=== PATIENT | male | born 1945 | race Caucasian/White ===

== ENCOUNTER 2023-01-12 10:42 | Inpatient (IN) | payer OTHER ==
--- OUTSIDE RECORDS SUMMARY | 2023-01-12 10:44 | XMS REPORT | Continuity of Care Document ---
:1945 Author Organization [facility] t Address [address] [facility] [address] [place] [address] Care Team Providers Name Role Phone Willie SALAZAR, Twan Primary Care Physician [place] SALAZAR, Josh Griffith Attending Clinician Riana LYNCH, Yung Attending Clinician Unavailable Payers Payer Name Policy Type Policy Number Effective Date Expiration Date S ource Problems This patient has no known problems. Allergies, Adverse Reactions, Alerts This patient has no known allergies or adverse reactions. Family History Family Member Diagnosis Comments Start Date Stop Date Source Natural father Throat cancer [facility] Natural sister Other [facility] Social History Social Habit Start Date Stop Date Quantity Comments Source Gender identity 2022-06-30 Identifies as [facility]28:[facility] gender Hospital (finding) [facility] orientation [facility] History of tobacco Cigarette Smoker [facility] Alcohol intake 2022-12-28 2022-12-28 Current drinker [facility] 00:00:00 00:00:00 of alcohol Hospital (finding) History of Social 2022-12-28 2022-12-[address] function 00:00:00 00:00:00 Hospital Education 2022-10-17 2022-10-17 18 [facility] 00:00:00 [facility]:00 [facility] Tobacco Comment 2022-10-17 2022-10-17 QUIT smoking in [facility] 00:00:00 00:00:[address] [place] [address] Alcohol Comment 2022-10-17 2022-10-17 socially [facility] 00:[facility]:00 [facility] Tobacco use and 2022-10-17 2022-10-17 Smokeless tobacco [facility] exposure 00:00:00 00:00:00 non-user Hospital Sex Assigned At [birth year] [facility] 00:00:[facility]:00 Hospital Smoking Status Start Date Stop Date Source Ex-smoker 2022-10-17 00:00:00 2022-10-17 00:00:00 [facility] Medications Ordered Filled Start Stop Current Ordering Indication Dosage Frequency Signature Comments Components Source Medication Medication Date Date Medication? Clinician (SIG) Name Name UNABLE TO 2022- No Stem Cell [facility] FIND 12-[address] 15:25: 00:00 2/day Hospita 02 :00 l UNABLE TO 2022- No Stem Cell [facility] FIND 12-[address] 15:25: 00:00 2/day Hospita 02 :00 l UNABLE TO Yes 800ug 800 mcg. Met romelia FIND 12-28 Med Name: st 14:15: Methylfola Hospita 27 te 5 x l wkly UNABLE TO Yes 800ug 800 mcg. Met khushbui FIND 12-28 Med Name: st 14:15: Methylfola [facility]ospita 27 te 5 x l wkly ELDERBERRY Yes 1{capsu Take 1 Me thodi FRUIT ORAL 830 le} capsule by st 14:12: mouth. Hospita 33 1600 mg 5 l days weekly with zinc and vit c Lactobacill Yes 120mg Take 120 M ethodi us 8-[address] acidophilus 14:12: mouth. Hosp tamra (PROBIOTIC 33 daily l ORAL) cyanocobala Yes Take by Met romelia min, [address] vitamin 14:12: 1000 mcg Hospit a B-12, 33 daily l (VITAMIN B-12 ORAL) cholecalcif Yes Take by Met romelia mary carmen, 8-[address] vitamin D3, 14:12: mcg/ day Ho spita (VITAMIN D3 33 l ORAL) aspirin Yes 81mg QD Take 1 Methodi (ECOTRIN) 30 tablet (81 st 81 MG 14:12: mg total) Hospita enteric 33 by mouth l coated daily. tablet ascorbic 2023-0 Yes 500mg QD Take 1 Method i acid, 8-[address] vitamin C, 14:12: (500 mg Hosp [facility] (VITAMIN C) 33 total) by l 500 MG mouth tablet daily. 5 x wkly docosahexae 2022-0 Yes 1100mg Take 1,100 Methodi noic 8-[address] acid/epa 14:12: mouth. 5 Hospi ta (FISH OIL 33 days a l ORAL) week turmeric/tu 0 Yes 500mg Take 500 M ethodi rmeric 8-[address] ext/pepr 14:12: mouth. 5 Hospi ta ext 33 days wkly l (turmeric-t urmeric ext-pepper) 500-3 mg capsule LUTEIN-ZEAX 0 Yes 10mg Take 10 mg Methodi ANTHIN ORAL 8-[address] 14:12: 10 MG EACH Hospita 33 l ELDERBERRY 2022-0 Yes 1{capsu Take 1 Me thodi FRUIT ORAL 8-30 le} capsule by st 14:12: mouth. Hospita 33 1600 mg 5 l days weekly with zinc and vit c Lactobacill 0 Yes 120mg Take 120 M ethodi us 8-[address] acidophilus 14:12: mouth. Hosp tamra (PROBIOTIC 33 daily l ORAL) cyanocobala 0 Yes Take by Met romelia min, 8-[address] vitamin 14:12: 1000 mcg Hospit a B-12, 33 daily l (VITAMIN B-12 ORAL) cholecalcif 0 Yes Take by Met romelia mary carmen, 8-[address] vitamin D3, 14:12: mcg/ day Ho spita (VITAMIN D3 33 l ORAL) aspirin 0 Yes 81mg QD Take 1 [facility] (ECOTRIN) 8-30 tablet (81 st 81 MG 14:12: mg total) Hospita enteric 33 by mouth l coated daily. tablet ascorbic 2022-0 Yes 500mg QD Take 1 Method i acid, 8-[address] vitamin C, 14:12: (500 mg Hosp tamra (VITAMIN C) 33 total) by l 500 MG mouth tablet daily. 5 x wkly docosahexae 2022-0 Yes 1100mg Take 1,100 Methodi noic 8-[address] acid/epa 14:12: mouth. 5 Hospi ta (FISH OIL 33 days a l ORAL) week turmeric/tu 0 Yes 500mg Take 500 M ethodi rmeric 8-[address] ext/pepr 14:12: mouth. 5 Hospi ta ext 33 days wkly l (turmeric-t urmeric ext-pepper) 500-3 mg capsule LUTEIN-ZEAX 0 Yes 10mg Take 10 mg Method[facility] ANTHIN ORAL 8-[address] 14:12: 10 MG EACH Hospita 33 l donepeziL 0 2023- Yes 5mg QD Take 1 Metho di (Aricept) 5 8-30 08-30 tablet (5 st MG tablet 00:00: 04:59 mg total) Ho spita 00 :00 by mouth l nightly. donepeziL 0 2023- Yes 5mg QD Take 1 Meth[facility] di (Aricept) 5 8-30 08-30 tablet (5 st MG tablet 00:00: 04:59 mg total) Ho spita 00 :00 by mouth l nightly. UNABLE TO 2022-0 Yes Curaphex-E Me thodi FIND 6-[address] 09:02: mg / day Hospita 20 l UNABLE TO 3-0 Yes 144mg 144 mg. Meth savita FIND 6-23 Neuro-[address] 09:02: 2 per day Hospita 20 l UNABLE TO 3-0 Yes 1000mg 1,000 mg. M ethodi FIND 6-[address] 09:02: 2/day Hospita 20 l melatonin 2022-0 Yes Take by Metho di 10 mg 6-[address] tablet 09:02: nightly Hospita 20 l UNABLE TO 3-0 Yes 1{capfu 1 Capful. Methodi FIND 6-23 l} Med st 09:02: Name:Mycob Hospita 20 otanical l UNABLE TO 3-0 Yes Curaphex-E Me thodi FIND 6-[address] 09:02: mg / day Hospita 20 l UNABLE TO 2023-0 Yes 144mg 144 mg. Meth savita FIND 6-23 Neuro-Mag [address] 09:02: 2 per day Hospita 20 l UNABLE TO 2023-0 Yes 1000mg 1,000 mg. M ethodi FIND 6-[address] 09:02: 2/day Hospita 20 l melatonin 2022-0 Yes Take by Metho di 10 mg 6-[address] tablet 09:02: nightly Hospita 20 l UNABLE TO 2022-0 Yes 1{capfu 1 Capful. Methodi FIND 6-23 l} Med st 09:02: Name:[facility] 20 otanictahira cid Vital Signs Vital Name Observation Time Observation Value Comments Source Systolic blood 2022-12-28 19:19:00 131 mm[Hg] [facility] pressure Diastolic blood 2022-12-28 19:19:00 70 mm[Hg] [facility] pressure Heart rate 2022-12-28 19:19:00 75 /min [facility] Body temperature 2022-12-28 19:07:00 36.28 Luz Marina [facility] Body height 2022-12-28 19:07:00 162.6 cm [facility] Body weight 2022-12-28 19:07:00 67.132 kg [facility] BMI 2022-12-28 19:07:00 25.40 kg/m2 [facility] Procedures Procedure Date / Time Performed Performing Clinician Sour e URINE CULTURE 2022-10-21 17:27:00 [facility] MTHFR MUTATION 2022-10-21 17:27:00 [facility] HOMOCYSTINE, PLASMA 2022-10-21 17:27:00 [place] [facility] HEMOGLOBIN A1C 2022-10-21 17:27:00 [facility] FOLATE, RBC 2022-10-21 17:27:00 [place] [facility] VITAMIN D 25 HYDROXY 2022-10-21 17:27:00 [place] [facility] LEVEL VITAMIN B6 LEVEL, 2022-10-21 17:27:00 [place] [facility] PLASMA VITAMIN B12 LEVEL 2022-10-21 17:27:00 [place] [facility] VITAMIN B1 (THIAMINE) 2022-10-21 17:27:00 [place] Josh [facility] URINALYSIS SCREEN AND 2022-10-21 17:27:00 Josh Haynes [facility] MICROSCOPY, WITH REFLEX TO CULTURE Plan of Care Planned Activity Planned Date Details Comments Source Future Scheduled 2023-01-02 COVID-19 VACCINE (#1) [facility] Test 09:06:47 [code = COVID-19 VACCINE (#1)] Future Scheduled 2023-01-02 Hepatitis C screening [facility] Test 09:06:47 (procedure) [code = 882839086] Future Scheduled 2023-01-02 SHINGLES VACCINES (1 Met [facility] Test 09:06:47 of 2) [code = SHINGLES VACCINES (1 of 2)] Future Scheduled 2023-01-02 65+ PNEUMOCOCCAL [facility] Test 09:06:47 VACCINE (1 - PCV) [code = 65+ PNEUMOCOCCAL VACCINE (1 - PCV)] Future Scheduled 2023-01-02 INFLUENZA VACCINE (#1) [facility] Test 09:06:47 [code = INFLUENZA VACCINE (#1)] Future Scheduled 2023-01-02 COVID-19 VACCINE (#1) [facility] Test 09:06:47 [code = COVID-19 VACCINE (#1)] Future Scheduled 2023-01-02 Hepatitis C screening [facility] Test 09:06:47 (procedure) [code = 246290595] Future Scheduled 2023-01-02 SHINGLES VACCINES (1 Met [facility] Test 09:06:47 of 2) [code = SHINGLES VACCINES (1 of 2)] Future Scheduled 2023-01-02 65+ [facility]:06:47 VACCINE (1 - PCV) [code = 65+ PNEUMOCOCCAL VACCINE (1 - PCV)] Future Scheduled 2023-01-02 INFLUENZA VACCINE (#1) [facility] Test 09:06:47 [code = INFLUENZA VACCINE (#1)] Encounters Start End Encounter Admission Attending Care Care Encounter Source Date/Time Date/Time Type Type Clinicians Facility Department ID 2022-12-28 2022-12-28 Roberth Espinoza2.840.1 [id number] Methodi 13:45:00 14:53:48 Visit Josh Griffith 34746.1.1 412 s t 3.430.2.7 Hospit a .3.955982 l .8 2022-12-28 2022-12-28 Office [place], 1.2.840.1 [id number] Methodi 13:45:00 14:53:48 Visit Josh Griffith 74341.1.1 412 s t 3.430.2.7 Hospit a .3.827314 l .8 2022-10-21 2022-10-21 Lab [place], 1.2.840.1 [id number] Methodi 11:20:00 11:25:00 Josh Griffith 97365.1.1 734 s t 3.430.2.7 Hospit a .3.231778 l .8 2022-10-21 2022-10-21 Lab [place], 1.2.840.1 [id number] Methodi 11:20:00 11:25:00 Josh Griffith 02043.1.1 734 s t 3.430.2.7 Hospit a .3.619819 l .8 2022-10-21 2022-10-21 Office [place], 1.2.840.1 [id number] Methodi 09:00:00 11:06:55 Visit Josh Griffith 26247.1.1 158 s t 3.430.2.7 Hospit a .3.463453 l .8 2022-10-21 2022-10-21 Office [place], 1.2.840.1 [id number] Methodi 09:00:00 11:06:55 Visit Josh Pang. 25916.1.1 158 s t 3.430.2.7 Hospit a .3.319910 l .8 2022-10-17 2022-10-17 Refill J[place], 1.2.840.1 [id number] Methodi 00:00:00 00:00:[address] 3.430.2.7 Hospit a .3.648804 l .8 2022-10-17 2022-10-17 Refill [place], 1.2.840.1 [id number] Methodi 00:00:00 00:00:[address] 3.430.2.7 Hospit a .3.116161 l .8 2022-07-20 2022-07-20 Orders [place], 1.2.840.1 [id number] Methodi 00:00:00 00:00:00 Only Josh C. 93984.1.1 582 s t 3.430.2.7 Hospit a .3.201135 l .8 2022-07-20 2022-07-20 Orders [place], 1.2.840.1 [id number] Methodi 00:00:00 00:00:00 Only Josh C. 92252.1.1 582 s t 3.430.2.7 Hospit a .3.322974 l .8 2022-06-30 2022-06-30 Transcribe [place], 1.2.840.1 [id number] Methodi 00:00:00 00:00:00 Orders Josh C. 80776.1.1 211 s t 3.430.2.7 Hospit a .3.462813 l .8 2022-06-30 2022-06-30 Transcribe [place], 1.2.840.1 [id number] Methodi 00:00:00 00:00:00 Orders Josh C. 13435.1.1 211 s t 3.430.2.7 Hospit a .3.239551 l .8 Results Test Description Test Time Test Comments Results Result Comments Source Urine culture 2022-10-21 18:59:00 Test Item Value Reference Range Interpretation Comme nts Urine culture (test code = 7338963) SEE COMMENT [facility], with reflex to culture 2022-10-21 18:59:00 Test Item Value Reference Range Interpretation Comments Specimen site (test Clean catch code = 0514680) Color, UA (test code Straw = 5778-6) Appearance, UA (test Clear code = 5767-9) Specific gravity, UA 1.013 1.001-1.035 (test code = 5811-5) pH, UA (test code = 6.0 5.0-8.5 5803-2) Protein, UA (test Negative Negative code = 21731-3) Glucose, UA (test Negative Negative code = 19664-4) Ketones, UA (test Negative Negative code = 2514-8) Bilirubin, UA (test Negative Negative code = 5770-3) Blood, UA (test code Negative Negative = 5794-3) Nitrite, UA (test Negative Negative code = 5802-4) Urobilinogen, UA <2.0 See_Comment [Automated message] (test code = The system beneSol 98622-9) generated this result transmitted ref erence range: <=2.0. T he reference range was not used to int erpret this result as normal/abnormal . Leukocyte esterase, Negative Negative UA (test code = 5799-2) WBC, UA (test code = See_Comment [Autom ated message] 5821-4) The system [employer] generated this result transmitted ref erence range: 0 - 1 /H PF. The reference range was not used to int erpret this result as normal/abnormal . RBC, UA (test code = 1 See_Comment [Autom ated message] 57422-1) The system [employer] generated this result transmitted ref erence range: 0 - 5 /H PF. The reference range was not used to int erpret this result as normal/abnormal . Bacteria, UA (test None seen None seen code = 96668-1) Yeast, UA (test code None seen = 89018-0) Yeast with None seen pseudohyphae, UA (test code = 96643-8) [facility] [id number] 18:59:00 Test Item Value Reference Range Interpretation Comments Urine culture (test SEE COMMENT Bacteriu chaitanya screen code = 3615519) negative. [facility], with reflex to culture 2022-10-21 18:59:00 Test Item Value Reference Range Interpretation Comments Specimen site (test Clean catch code = 7831336) Color, UA (test code Straw = 5778-6) Appearance, UA (test Clear code = 5767-9) Specific gravity, UA 1.013 1.001-1.035 (test code = 5811-5) pH, UA (test code = 6.0 5.0-8.5 5803-2) Protein, UA (test Negative Negative code = 01280-3) Glucose, UA (test Negative Negative code = 70249-1) Ketones, UA (test Negative Negative code = 2514-8) Bilirubin, UA (test Negative Negative code = 5770-3) Blood, UA (test code Negative Negative = 5794-3) Nitrite, UA (test Negative Negative code = 5802-4) Urobilinogen, UA <2.0 See_Comment [Automated message] (test code = The system beneSol 97626-9) generated this result transmitted ref erence range: <=2.0. T he reference range was not used to int erpret this result as normal/abnormal . Leukocyte esterase, Negative Negative UA (test code = 5799-2) WBC, UA (test code = See_Comment [Autom ated message] 5821-4) The system [employer] generated this result transmitted ref erence range: 0 - 1 /H PF. The reference range was not used to int erpret this result as normal/abnormal . RBC, UA (test code = 1 See_Comment [Autom ated message] 44887-2) The system [employer] generated this result transmitted ref erence range: 0 - 5 /H PF. The reference range was not used to int erpret this result as normal/abnormal . Bacteria, UA (test None seen None seen code = 15976-9) Yeast, UA (test code None seen = 52458-0) Yeast with None seen pseudohyphae, UA (test code = 61282-0) [facility]
--- NOTE | 2023-01-12 11:47 | RAD REPORT ---
EXAM DESCRIPTION: CT - Head Brain Wo Cont - 01/12/2023 11:23 am CLINICAL HISTORY: HEADACHE COMPARISON: Ct Stroke Brain Wo Cont dated 01/09/2023 TECHNIQUE: Noncontrast head CT images ad were obtained without IV contrast. Multiplanar reformats we re generated and reviewed. All CT scans are performed using dose optimization technique as appropriate and may include automated exposure control or mA/KV adjustment according to patient size. FINDINGS: No intracranial hemorrhage, mass, or edema. Midline structures are unremarkable. Stable ventricular caliber with mild diffuse parenchymal volume loss. Davidson-white matter differentiation is preserved, without evidence of acute infarct. No abnormal extra- axial fluid collections. Mastoid air cells are well aerated. Scattered mild inflammatory mucosal thickening throughout the par anasal sinuses. No acute bony findings. IMPRESSION: No evidence of an acute intracranial process.
[2023-01-12 12:51] LABS: Hematocrit 41.7 % (39.6-49.0); Lymphocytes % 26.3 % (15.3-44.8); MCV 93.9 fL (80-100); MPV 8.3 fL (7.6-11.3); Platelets 211 thou/uL (152-406); RBC Red Blood Cell Count 4.44 M/uL (4.33-5.43)
[2023-01-12 13:02] LABS: Protime INR 0.95
[2023-01-12 13:12] LABS: Albumin 3.4 g/dL (3.4-5.0); Bilirubin Direct 0.2 mg/dL (0-0.2); Bilirubin Indirect, Calculated 0.6 mg/dL (0.2-0.8); Bilirubin Total 0.8 mg/dL (0.2-1.0); Magnesium 2.1 mg/dL (1.6-2.4); Potassium 3.6 mEq/L (3.5-5.1); Protein, Total 6.5 g/dL (6.4-8.2); Troponin High Sensitivity 9.4 pg/mL (<58.9)
--- NOTE | 2023-01-12 13:36 | RAD REPORT ---
EXAM DESCRIPTION: RAD - Chest Single View - 01/12/2023 1:30 pm CLINICAL HISTORY: streok Chest pain. COMPARISON: Chest Single View dated 01/09/2023 FINDINGS: Portable technique limits examination quality. The lungs are grossly clear. The heart is normal in size. No displaced fractures. IMPRESSION: No acute intrathoracic process suspected.
[2023-01-12] MEDS ORDERED: METOCLOPRAMIDE 10 MG/2mL INJ ONE (14:17)
--- NOTE | 2023-01-12 15:06 | RAD REPORT ---
EXAM DESCRIPTION: MRI - Brain W/Wo Cont - 01/12/2023 2:53 pm CLINICAL HISTORY: Confused;Hemiplegia;Headache;Weakness Headache, drowsiness, weakness COMPARISON: Head Brain Wo Cont dated 01/12/2023; Ct Stroke Brain Wo Cont dated 01/09/2023; Neck Angio dated 01/09/2023; Head angio dated 01/09/2023 TECHNIQUE: Multi-sequence, multiplanar MR imaging of the brain was performed with contrast. FINDINGS: No intracranial hemorrhage, hydrocephalus, or extra-axial fluid collection.Small nonspecif ic area of T2/FLAIR hyperintensity in the anterior aspect of the superior right cerebellar hemisphere noted. This does not enhance and is unlikely to be of clinical consequence. No edema or shift of mid line structures. Moderate brain atrophy.No intracranial mass. There is a 6 mm area of diffusion restr iction seen right medulla suspected to represent small infarct.. The midline structures are normally formed. Mastoid air cells and paranasal sinuses are clear. Post-contrast images show no abnormal enhancement to suggest tumor or infection. 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 Elsewhere, no acute finding is evident.
[2023-01-12] MEDS ORDERED: HYDRALAZINE HCL 25 MG TABLET ONE (15:10)
--- NOTE | 2023-01-12 15:54 | ER ---
Nurse's Notes [facility] Name: Robinson Norman Age: 77 yrs Sex: Male : 1945 Arrival Date: 01/12/2023 Time: 10:42 Bed 19 Private MD: Twan Tapia V Diagnosis: Cerebral infarction, unspecified Presentation: 01/12 11:02 Chief complaint: Spouse and/or significant other states: right side of head hurts and ko1 when he moves his head he gets dizzy. Coronavirus screen: At this time, the client does not indicate any symptoms associated with coronavirus-19. Ebola Screen: No symptoms or risks identified at this time. Initial Sepsis Screen: Does the patient meet any 2 criteria? No. Patient's initial sepsis screen is negative. Does the patient have a suspected source of infection? No. Patient's initial sepsis screen is negative. Risk Assessment: Do you want to hurt yourself or someone else? Patient reports no desire to harm self or others. Onset of symptoms was January 12, 2023. 11:02 Method Of Arrival: Wheelchair ko1 11:02 Acuity: TRE 3 ko1 Triage Assessment: 11:06 Headache History: The patient has had previous headaches and this one is similar to ko1 previous episodes. General: Appears in no apparent distress. Behavior is calm, cooperative, appropriate for age. Pain: Complains of pain in right frontal area Pain currently is 6 out of 10 on a pain scale. Pain began gradually, Also complains of no other associated symptoms. Neuro: Reports dizziness, headache in right. Historical: - Allergies: 11:06 No Known Allergies; ko1 - PMHx: 11:06 Dementia; ko1 - Immunization history:: Adult Immunizations up to date. - Social history:: Smoking status: Patient denies any tobacco usage or history of. Screenin:11 [facility] ED Fall Risk Assessment (Adult) History of falling in the last 3 months, me1 including since admission No falls in past 3 months (0 pts) Confusion or Disorientation No (0 pts) Intoxicated or Sedated No (0 pts) Impaired Gait Yes (1 pt) Mobility Assist Device Used No (0 pt) Altered Elimination No (0 pt) Score/Fall Risk Level 0 - 2 = Low Risk. Abuse screen: Denies threats or abuse. Nutritional screening: No deficits noted. Tuberculosis screening: No symptoms or risk factors identified. Assessment: 13:11 General: Appears comfortable, well groomed, well developed, well nourished, Behavior is me1 calm, cooperative, appropriate for age, Reports intermittent right sided headache with dizziness. Denies fever, feeling ill, fatigue, chills. Pain: Denies pain. Complains of pain in right jew Pain does not radiate. Pain at worst was 7 out of 10 on a pain scale. Quality of pain is described as aching, Pain began intermittently Is intermittent. Neuro: Level of Consciousness is awake, alert, obeys commands, drowsy. Oriented to person, place, time, situation, Appropriate for age Firearms Assembly Supervisor are weak on right Moves all extremities. Speech is normal, Facial symmetry appears normal, Pupils are PERRLA, Intact Reports headache in right weakness. Cardiovascular: Capillary refill < 3 seconds Patient's skin is warm and dry. Respiratory: Airway is patent Respiratory effort is even, unlabored, Respiratory pattern is regular, symmetrical. Musculoskeletal:. 15:07 Reassessment: Pt returned from MRI, reports continued dizziness, nystagmus noted, jl7 denies history of nystagmus. Vital Signs: 11:02 BP 201 / 66; Pulse 51; Resp 18; Temp 97.5; Pulse Ox 97% ; Weight 65.77 kg; Height 5 ft. ko1 5 in. ; 12:30 BP 209 / 69; Pulse 45; Resp 16; Pulse Ox 98% ; me1 12:30 BP 205 / 73; Pulse 44; Resp 16; Pulse Ox 98% on R/A; me1 15:07 BP 225 / 99; Pulse 49; Resp 15; Pulse Ox 100% ; jl7 15:54 BP 217 / 81; Pulse 53; Resp 16; Pulse Ox 99% on R/A; me1 11:02 Body Mass Index 24.13 (65.77 kg, 165.1 cm) ko1 Needles Coma Score: 17:52 Eye Response: spontaneous(4). Motor Response: obeys commands(6). Verbal Response: sb4 oriented(5). Total: 15. NIH Stroke Scale Scores: 17:15 NIHSS Score: 4 me1 17:52 NIHSS Score: 2 sb4 ED Course: 10:44 Patient arrived in ED. rg4 10:44 Twan Tapia MD is Private Physician. rg4 10:49 Lara Schmitt PA-C is [facility] sb4 10:49 Jose Alejandro Rosario MD is Attending Physician. sb4 11:06 Triage completed. ko1 11:06 Arm band placed on right wrist. Patient placed in waiting room, Patient notified of ko1 wait time. 11:24 Head Brain Wo Cont CT In Process Unspecified. EDMS 11:45 Patient placed in an exam room, on a stretcher. ll1 12:17 Lashawn Tapia, SYED is Primary Nurse. me1 12:31 Basic Metabolic Panel Sent. me1 12:31 CBC with Diff Sent. me1 12:31 Hepatic Function Sent. me1 12:31 High Sensitivity Troponin Sent. me1 12:31 Magnesium Sent. me1 12:31 Protime (+inr) Sent. me1 12:31 Ptt, Activated Sent. me1 12:31 Inserted saline lock: 22 gauge in left antecubital area, using aseptic technique. me1 13:11 Patient has correct armband on for positive identification. Bed in low position. Call me1 light in reach. Side rails up X2. Provided Education on: POC. Verbalized understanding.. 13:11 No provider procedures requiring assistance completed. me1 13:32 Stroke CXR 1 View In Process Unspecified. EDMS 14:55 Brain W/Wo Cont MRI In Process Unspecified. EDMS 16:30 Twan Tapia MD is Hospitalizing Provider. sb4 19:39 Patient admitted, IV remains in place. me1 Administered Medications: 14:08 Drug: metoCLOPramide IVP 10 mg Route: IVP; Site: right antecubital; me1 15:08 Follow up: Response: No adverse reaction; Nausea is decreased me1 15:06 Drug: HydrALAZINE PO 25 mg Route: PO; jl7 15:54 Follow up: Response: No adverse reaction; No change in condition me1 16:08 Drug: foLIC Acid IVPB 1 mg Route: IVPB; Site: right antecubital; me1 16:49 Follow up: Response: No adverse reaction me1 17:23 Follow up: IV Status: Completed infusion me1 17:15 Drug: Clopidogrel PO 75 mg Route: PO; me1 17:24 Follow up: Response: No adverse reaction me1 17:15 Drug: Atorvastatin PO 40 mg Route: PO; me1 17:24 Follow up: Response: No adverse reaction me1 18:34 Drug: amLODIPine PO 5 mg Route: PO; me1 18:34 Drug: Keppra PO 500 mg Route: PO; me1 Medication: 13:11 VIS not applicable for this client. me1 Outcome: 15:54 ER care complete, transfer ordered by . sb4 16:30 Decision to Hospitalize by Provider. sb4 19:25 Patient left the ED. kd3 19:39 Admitted to Med/surg accompanied by nurse, via wheelchair, room 405, with chart, Report me1 called to SYED Finch 19:39 Condition: stable 19:39 Instructed on the need for admit. NIH Stroke Scale - NIH Stroke Score Date: 01/12/2023 Time: 17:15 Total Score = 4 10. Dysarthria (speech clarity - read or repeat words) - 1(Mild to Moderate) 11. Extinction and Inattention (visual/tactile/auditory/spatial/personal) - 0(No abnormality) 1a. Level of Consciousness (LOC) - 0(Alert) 1b. Level of Consciousness (LOC) (Month \T\ Age) - 0(Both) 1c. LOC Commands (Open \T\ Closes Eyes/Supervisor Tumbling And Rolling) - 0(Both) 2. Best Gaze (Lateral Gaze Paresis) - 0(Normal) 3. Visual Field Loss - 0(No visual loss) 4. Facial Palsy - 0(Normal) 5a. Left Arm: Motor (10-second hold) - 0(No drift) 5b. Right Arm: Motor (10-second hold) - 1(Drift) 6a. Left Leg: Motor (5-second hold - always test supine) - 0(No drift) 6b. Right Leg: Motor (5-second hold - always test supine) - 1(Drift) 7. Limb Ataxia (finger/nose \T\ heel/zurita - test with eyes open) - 1(Present in one limb) 8. Sensory Loss (pinprick arms/legs/face) - 0(Normal) 9. Best Language: Aphasia (description/naming/reading) - 0(No aphasia) Initials: me1 NIH Stroke Scale - NIH Stroke Score Date: 01/12/2023 Time: 17:52 Total Score = 2 10. Dysarthria (speech clarity - read or repeat words) - 0(Normal) 11. Extinction and Inattention (visual/tactile/auditory/spatial/personal) - 0(No abnormality) 1a. Level of Consciousness (LOC) - 0(Alert) 1b. Level of Consciousness (LOC) (Month \T\ Age) - 0(Both) 1c. LOC Commands (Open \T\ Closes Eyes/Supervisor Tumbling And Rolling) - 0(Both) 2. Best Gaze (Lateral Gaze Paresis) - 0(Normal) 3. Visual Field Loss - 0(No visual loss) 4. Facial Palsy - 1(Minor Paralysis) 5a. Left Arm: Motor (10-second hold) - 0(No drift) 5b. Right Arm: Motor (10-second hold) - 0(No drift) 6a. Left Leg: Motor (5-second hold - always test supine) - 0(No drift) 6b. Right Leg: Motor (5-second hold - always test supine) - 0(No drift) 7. Limb Ataxia (finger/nose \T\ heel/zurita - test with eyes open) - 1(Present in one limb) 8. Sensory Loss (pinprick arms/legs/face) - 0(Normal) 9. Best Language: Aphasia (description/naming/reading) - 0(No aphasia) Initials: sb4 Signatures: Dispatcher [employer] Lillie Schaefer rg4 Saw Navarro RN RN jl7 Moe Lerner, RN RN ll1 Anastasiia Escobar RN RN kd3 Tonia Wilkes RN RN ko1 Lara Schmitt, PADoug PAVanC sb4 Lashawn Tapia, RN RN me1
--- NOTE | 2023-01-12 15:54 | EDPHYS ---
Physician Documentation [facility] Name: Robinson Norman Age: 77 yrs Sex: Male : 1945 Arrival Date: 01/12/2023 Time: 10:42 Bed 19 Private MD: Twan Tapia V ED Physician Jose Alejandro Rosario HPI: 01/12 17:52 This 77 yrs old Male presents to ER via Wheelchair with complaints of Headache. sb4 17:52 77 year old male with past medical history of dementia presents with complaints of sb4 headache and right sided weakness. He was seen here 3 days ago with similar symptoms, had a negative workup including bloodwork, EKG, head CT, brain and neck CTAs and was discharged. states later that day, he had what appeared to be a seizure. The following day, they saw Dr. Worthy who ordered an outpatient MRI and EEG. states that the symptoms worsened this morning. Historical: - Allergies: 11:06 No Known Allergies; ko1 - PMHx: 11:06 Dementia; ko1 - Immunization history:: Adult Immunizations up to date. - Social history:: Smoking status: Patient denies any tobacco usage or history of. ROS: 17:52 Constitutional: Negative for fever, chills, and weight loss. sb4 17:52 Neuro: Positive for dizziness, gait disturbance, weakness. 17:52 Neuro: Positive for headache. 17:52 All other systems are negative. Exam: 17:52 Constitutional: This is a well developed, well nourished patient who is awake, alert, sb4 and in no acute distress. Head/Face: Normocephalic, atraumatic. Eyes: Extra-ocular motions intact. Periorbital areas with no swelling, redness, or edema. Cardiovascular: Regular rate and rhythm with a normal S1 and S2. Respiratory: Lungs have equal breath sounds bilaterally, clear to auscultation and percussion. No rales, rhonchi or wheezes noted. No increased work of breathing, no retractions or nasal flaring. Abdomen/GI: Soft, non-tender, no distension. Skin: Warm, dry with normal turgor. Normal color with no rashes, no lesions, and no evidence of cellulitis. MS/ Extremity: Pulses equal, no cyanosis. Neurovascular intact. Full, normal range of motion. 17:52 Neuro: Orientation: is normal, to person, place, time \T\ situation. Mentation: is normal, appropriate for stated age, responsive to voice able to follow commands, Memory: no acute changes, per family, Cranial nerves: CN I not tested, visual grimm are intact. extraocular movements are intact, facial droop noted on left, no gross hearing deficit,. Speech is clear and appropriate. Tongue strength is normal, Motor: moves all fours, Sensation: no obvious gross deficits, no acute changes, Gait: is unsteady, falls to right. Vital Signs: 11:02 BP 201 / 66; Pulse 51; Resp 18; Temp 97.5; Pulse Ox 97% ; Weight 65.77 kg; Height 5 ft. ko1 5 in. ; 12:30 BP 209 / 69; Pulse 45; Resp 16; Pulse Ox 98% ; me1 12:30 BP 205 / 73; Pulse 44; Resp 16; Pulse Ox 98% on R/A; me1 15:07 BP 225 / 99; Pulse 49; Resp 15; Pulse Ox 100% ; jl7 15:54 BP 217 / 81; Pulse 53; Resp 16; Pulse Ox 99% on R/A; me1 11:02 Body Mass Index 24.13 (65.77 kg, 165.1 cm) ko1 NIH Stroke Scale Scores: 17:15 NIHSS Score: 4 me1 17:52 NIHSS Score: 2 sb4 [place] Coma Score: 17:52 Eye Response: spontaneous(4). Motor Response: obeys commands(6). Verbal Response: sb4 oriented(5). Total: 15. MDM: 10:49 Patient medically screened. sb4 17:52 Differential diagnosis: cerebral vascular accident, intracerebral hemorrhage, migraine, sb4 neoplasm, subarachnoid bleed, subdural hematoma. Data reviewed: vital signs, nurses notes, lab test result(s), EKG, radiologic studies, I have discussed the patient's presentation/case with the attending Emergency Department Physician; and as a result, I will admit patient. Consideration of Admission/Observation Patient was admitted/placed on observation. Management of patient was discussed with the following: Labor Mediator: Dr. Worthy, agrees to consult- recommends plavix, folic acid, and statin. Primary Care Provider: Dr. Tapia, accepts patient for admission. Historians other than the Patient: Spouse/Significant Other: . Counseling: I had a detailed discussion with the patient and/or guardian regarding the historical points, exam findings, and any diagnostic results supporting the discharge/admit diagnosis, the presence of at least one elevated blood pressure reading (>120/80) during this emergency department visit, lab results, radiology results, the need for further work-up and treatment in the hospital. ED course: I initiated transfer on this patient for neuro ICU monitoring however my request was declined by neurosurgery at [facility]. They stated that because his symptoms have been occurring for 3+ days now, it is highly unlikely that the patient will deteriorate with this specific infarct. I discussed this with our neurologist and patient's PCP, Dr. Tapia, and they are okay with patient being admitted at this facility. I also discussed this at length with patient and his and they are also agreeable. 01/12 12:08 Order name: Basic Metabolic Panel; Complete Time: 13:14 sb4 01/12 12:08 Order name: CBC with Diff; Complete Time: 12:56 sb4 01/12 12:08 Order name: Hepatic Function; Complete Time: 13:14 sb4 01/12 12:08 Order name: High Sensitivity Troponin; Complete Time: 13:14 sb4 01/12 12:08 Order name: Magnesium; Complete Time: 13:14 sb4 01/12 12:08 Order name: Protime (+inr); Complete Time: 13:02 sb4 01/12 12:08 Order name: Ptt, Activated; Complete Time: 13:02 sb4 01/12 13:22 Order name: Glucose, Ancillary Testing; Complete Time: 13:23 EDMS 01/12 11:12 Order name: Head Brain Wo Cont CT; Complete Time: 11:50 sb4 01/12 12:04 Order name: Brain W/Wo Cont MRI; Complete Time: 15:07 sb4 01/12 12:08 Order name: Stroke CXR 1 View; Complete Time: 13:38 sb4 01/12 12:08 Order name: EKG; Complete Time: 12:09 sb4 01/12 12:08 Order name: Accucheck; Complete Time: 13:11 sb4 01/12 12:08 Order name: Cardiac monitoring; Complete Time: 13:04 sb4 01/12 12:08 Order name: EKG - Nurse/Tech; Complete Time: 13:04 sb4 01/12 12:08 Order name: IV Saline Lock; Complete Time: 12:31 sb4 01/12 12:08 Order name: Labs collected and sent; Complete Time: 12:31 sb4 01/12 12:08 Order name: NPO; Complete Time: 12:31 sb4 01/12 12:08 Order name: O2 Per Protocol; Complete Time: 12: sb4 01/12 12:08 Order name: O2 Sat Monitoring; Complete Time: 12:31 sb4 01/12 12:08 Order name: Stroke Swallow Screen; Complete Time: 13:08 sb4 01/12 15:50 Order name: Misc. Order: document NIHSS please sb4 EC:37 Rate is 45 beats/min. Rhythm is irregular, Sinus bradycardia with Right bundle branch sb4 block. [place] interval is prolonged at 206 msec. QRS interval is normal at 162 msec. QT interval is prolonged at [address] changes noted. Interpreted by me. Reviewed by me. Administered Medications: 14:08 Drug: metoCLOPramide IVP 10 mg Route: IVP; Site: right antecubital; me1 15:08 Follow up: Response: No adverse reaction; Nausea is decreased me1 15:06 Drug: HydrALAZINE PO 25 mg Route: PO; jl7 15:54 Follow up: Response: No adverse reaction; No change in condition me1 16:08 Drug: foLIC Acid IVPB 1 mg Route: IVPB; Site: right antecubital; me1 16:49 Follow up: Response: No adverse reaction me1 17:23 Follow up: IV Status: Completed infusion me1 17:15 Drug: Clopidogrel PO 75 mg Route: PO; me1 17:24 Follow up: Response: No adverse reaction me1 17:15 Drug: Atorvastatin PO 40 mg Route: PO; me1 17:24 Follow up: Response: No adverse reaction me1 18:34 Drug: amLODIPine PO 5 mg Route: PO; me1 18:34 Drug: Keppra PO 500 mg Route: PO; me1 Disposition: 19:53 Co-signature as Attending Physician, Jose Alejandro Rosario MD. rt Disposition Summary: 01/12/23 16:30 Hospitalization Ordered Hospitalization Status: Inpatient Admission sb4 Provider: Willie, Twan sb4 Location: Telemetry/MedSurg (Inpatient) sb4 Condition: Fair(01/12/23 16:30) sb4 Problem: new(01/12/23 16:30) sb4 Symptoms: are unchanged(01/12/23 16:30) sb4 Bed/Room Type: Standard sb4 Room Assignment: 405(01/12/23 18:13) kj1 Diagnosis - Cerebral infarction, unspecified sb4 Forms: - Medication Reconciliation Form sb4 - SBAR form sb4 - Leadership Thank You Letter sb4 NIH Stroke Scale - NIH Stroke Score Date: 01/12/2023 Time: 17:15 Total Score = 4 10. Dysarthria (speech clarity - read or repeat words) - 1(Mild to Moderate) 11. Extinction and Inattention (visual/tactile/auditory/spatial/personal) - 0(No abnormality) 1a. Level of Consciousness (LOC) - 0(Alert) 1b. Level of Consciousness (LOC) (Month \T\ Age) - 0(Both) 1c. LOC Commands (Open \T\ Closes Eyes/Financial Operations Consultant) - 0(Both) 2. Best Gaze (Lateral Gaze Paresis) - 0(Normal) 3. Visual Field Loss - 0(No visual loss) 4. Facial Palsy - 0(Normal) 5a. Left Arm: Motor (10-second hold) - 0(No drift) 5b. Right Arm: Motor (10-second hold) - 1(Drift) 6a. Left Leg: Motor (5-second hold - always test supine) - 0(No drift) 6b. Right Leg: Motor (5-second hold - always test supine) - 1(Drift) 7. Limb Ataxia (finger/nose \T\ heel/zurita - test with eyes open) - 1(Present in one limb) 8. Sensory Loss (pinprick arms/legs/face) - 0(Normal) 9. Best Language: Aphasia (description/naming/reading) - 0(No aphasia) Initials: me1 NIH Stroke Scale - NIH Stroke Score Date: 01/12/2023 Time: 17:52 Total Score = 2 10. Dysarthria (speech clarity - read or repeat words) - 0(Normal) 11. Extinction and Inattention (visual/tactile/auditory/spatial/personal) - 0(No abnormality) 1a. Level of Consciousness (LOC) - 0(Alert) 1b. Level of Consciousness (LOC) (Month \T\ Age) - 0(Both) 1c. LOC Commands (Open \T\ Closes Eyes/Financial Operations Consultant) - 0(Both) 2. Best Gaze (Lateral Gaze Paresis) - 0(Normal) 3. Visual Field Loss - 0(No visual loss) 4. Facial Palsy - 1(Minor Paralysis) 5a. Left Arm: Motor (10-second hold) - 0(No drift) 5b. Right Arm: Motor (10-second hold) - 0(No drift) 6a. Left Leg: Motor (5-second hold - always test supine) - 0(No drift) 6b. Right Leg: Motor (5-second hold - always test supine) - 0(No drift) 7. Limb Ataxia (finger/nose \T\ heel/zurita - test with eyes open) - 1(Present in one limb) 8. Sensory Loss (pinprick arms/legs/face) - 0(Normal) 9. Best Language: Aphasia (description/naming/reading) - 0(No aphasia) Initials: sb4 Signatures: Dispatcher [employer] EDSaw Shelby RN RN jl7 Niya Bloom kj1 Tonia Wilkes RN RN ko1 Lara Schmitt PA-C PADoug sb4 Jose Alejandro Rosario MD MD rt Lashawn Tapia, RN RN me1 Corrections: (The following items were deleted from the chart) 16:28 15:54 Neurologist sb4 sb4 16:28 15:54 [facility] sb4 sb4 16:28 15:54 Higher level of care sb4 sb4 16:28 15:54 Fair sb4 sb4 16:28 15:54 an ongoing problem sb4 sb4 16:28 15:54 are unchanged sb4 sb4 16:28 15:54 CVA- 6 mm acute infarct right medulla sb4 sb4 18:13 16:30 sb4 kj1
[2023-01-12] MEDS ORDERED: FOLIC ACID 5 MG/ML VIAL ONE (16:12)
[2023-01-12] MEDS ORDERED: ATORVASTATIN 40 MG TAB ONE (17:25)
[2023-01-12] MEDS ORDERED: CLOPIDOGREL 75 MG TABLET ONE (17:25)
[2023-01-12] MEDS ORDERED: AMLODIPINE 5 MG TAB ONE (18:40)
[2023-01-12] MEDS ORDERED: levETIRAcetam 500 MG TAB ONE (18:41)
[2023-01-12 19:55] VITALS: O2SAT 99
--- NOTE | 2023-01-12 21:24 | P.HP ---
Certification for Inpatient Patient admitted to: Inpatient Practitioner: I am a practitioner with admitting privileges, knowledge of patient current condition, hospital course, and medical plan of care. Services: Services provided to patient in accordance with Admission requirements found in Title 42 Section 412.3 of the Code of Federal Regulations Patient History Date of Service: 01/12/23 Reason for admission: TENDS TO SWAY ON RIGHT SIDE ON WALKING. History of Present Illness: MR. HERRERA HAD EPISODE OF CONFUSION 3 DAYS AGO AND I SAW HIM LEANING TO RIGHT SIDE. I SENT HIM TO ER FROM OFFICE, DR. DIAZ DID EVAL AND DID NOT FIND ANYTHING ON CT BRAIN AND CT ANGIOGRAM. I ASKED HIM TO DO MRI BUT HE COULD NOT HAVE IT DONE IN ER. MR HERRERA CONTINUED ASPIRIN BUT GOT WORSE AT HOME. HE IS BACK TODAY. ER COULD DO MRI TODAY AND FOUND HIM TO HAVE 6 MM MEDULAR INFARCT ON R SIDE. HE IS NOW ADMITTED FOR REHAB. Allergies No Known Allergies Allergy (Unverified 01/12/23 19:36) Home medications list reviewed: Yes Review of Systems 10-point ROS is otherwise unremarkable Physical Examination - Vital Signs Temperature: 97.5 F Blood Pressure: 217/81 Pulse: 53 Respirations: 16 - Physical Exam General: Mild distress HEENT: Atraumatic, PERRLA, Mucous membr. moist/pink, EOMI, Sclerae nonicteric Neck: Supple, 2+ carotid pulse no bruit, No LAD, Without JVD or thyroid abnormality Respiratory: Clear to auscultation bilaterally, Normal air movement Cardiovascular: Regular rate/rhythm, Normal S1 S2 Gastrointestinal: Normal bowel sounds, No tenderness Musculoskeletal: No tenderness Integumentary: No rashes Neurological: Normal speech, Abnormal strength (MILD R HEMIPARESIS THAT IS NEW FROM BEFORE. ) Lymphatics: No axilla or inguinal lymphadenopathy - Studies Laboratory Data (last 24 hrs) 01/12/23 01/12/23 01/12/23 12:28 12:28 12:28 WBC 7.40 Hgb 14.3 Hct 41.7 Plt Count 211 PT 10.5 INR 0.95 APTT 29.4 Sodium 133 L Potassium 3.6 BUN 9 Creatinine 0.75 Glucose 113 H Magnesium 2.1 Total Bilirubin 0.8 AST 12 L ALT 20 Alkaline Phosphatase 47 Assessment and Plan - Problems (Diagnosis) (1) Infarction of medulla oblongata Current Visit: Yes Status: Acute Plan: RIGHT SIDE START PLAVIX AMLODIPINE CLONIDINE FOR SEVERE HTN. PT CONSULT REHAB CONSULT. (2) Seizure, absence Current Visit: Yes Status: Acute Plan: DURING THIS 3 DAYS HE HAD EPISODE WHERE HIS EYES ROLLED AND HE GOT ON THE FLOOR. START KEPPRA HE IS HIGH RISK OF STROKE. - Advance Directives Does patient have a Living Will: No Does patient have a Durable POA for Healthcare: No
[2023-01-12 21:39] VITALS: BMI 24.1
[2023-01-12] MEDS ORDERED: cloNIDine HCL 0.1 MG TAB ONE (22:44)
[2023-01-13] MEDS: DONEPEZIL HCL 5 MG TAB PO SCH (07:58)
[2023-01-13] MEDS: CLOPIDOGREL 75 MG TABLET PO SCH (07:58)
[2023-01-13] MEDS: AMLODIPINE 5 MG TAB PO SCH (07:58)
[2023-01-13] MEDS: ASPIRIN EC 81 MG TAB PO SCH (07:58)
[2023-01-13] MEDS: levETIRAcetam 500 MG TAB PO SCH ×2 (07:58→21:06)
[2023-01-13] MEDS: cloNIDine HCL 0.1 MG TAB PO PRN ×2 (07:59→21:10)
--- NOTE | 2023-01-13 14:57 | P.PN ---
Subjective Date of Service: 01/13/23 Chief Complaint: TENDS TO SWAY ON RIGHT SIDE ON WALKING. Subjective: No new changes MR. HERRERA HAS DEMENTIA AND A MEDULLARY STROKE NOW. HE LEANS ON R SIDE WHILE WALKS AND NEEDS PT. SEE PT CARLOZ FOR DETAILS. Review of Systems 10-point ROS is otherwise unremarkable General: Weakness Neurological: Incoordination, Confusion, As per HPI Physical Examination - Vital Signs Temperature: 96.8 F Blood Pressure: 150/70 Pulse: 56 Respirations: 14 Pulse Ox (%): 98 - Physical Exam General: Oriented x2, Mild distress HEENT: Atraumatic, PERRLA, EOMI Neck: Supple, JVD not distended Respiratory: Clear to auscultation bilaterally, Normal air movement Cardiovascular: Regular rate/rhythm, Normal S1 S2 Gastrointestinal: Normal bowel sounds, No tenderness Musculoskeletal: No tenderness Integumentary: No rashes Neurological: Normal speech, Normal tone, Normal affect, Abnormal strength (R SIDE WEAKNESS AND TENDS TO FALL TOWARDS R SIDE. ) Lymphatics: No axilla or inguinal lymphadenopathy - Studies Medications List Reviewed: Yes Assessment And Plan - Current Problems (Diagnosis) (1) Infarction of medulla oblongata Current Visit: Yes Status: Acute Plan: RIGHT SIDE START PLAVIX AMLODIPINE CLONIDINE FOR SEVERE HTN. PT CONSULT REHAB CONSULT. PT CARLOZ DONE REHAB REF PENDING (2) Seizure, absence Current Visit: Yes Status: Acute Plan: DURING THIS 3 DAYS HE HAD EPISODE WHERE HIS EYES ROLLED AND HE GOT ON THE FLOOR. START KEPPRA HE IS HIGH RISK OF STROKE.
--- NOTE | 2023-01-13 16:35 | EKG ---
Test Date: 2023-01-12 Test Time: 12:31:59 Supervisor Wheel [employer]: MONSE MEASUREMENT RESULTS: Intervals: Rate: 45 SC: 206 QRSD: 162 QT: 530 QTc: 458 [place]: P: 6 SC: 206 QRS: -12 T: 0 INTERPRETIVE STATEMENTS: Sinus bradycardia Right bundle branch block Abnormal ECG Compared to ECG 01/09/2023 14:04:31 No significant changes Electronically Signed On 01-13-23 16:32:17 CDT by Jose Benjamin
[2023-01-13] MEDS: ENOXAPARIN 40 MG/0.4 ML SQ SCH (17:09)
[2023-01-13] MEDS: MELATONIN 5 MG TABLET PO PRN (21:06)
[2023-01-14] MEDS: levETIRAcetam 500 MG TAB PO SCH ×2 (07:57→20:13)
[2023-01-14] MEDS: DONEPEZIL HCL 5 MG TAB PO SCH (07:57)
[2023-01-14] MEDS: AMLODIPINE 5 MG TAB PO SCH ×2 (07:58→20:13)
[2023-01-14] MEDS: ASPIRIN EC 81 MG TAB PO SCH (07:58)
[2023-01-14] MEDS: CLOPIDOGREL 75 MG TABLET PO SCH (07:58)
[2023-01-14] MEDS ORDERED: POTASSIUM CL SA 10 MEQ TAB PO ONE (09:00)
--- NOTE | 2023-01-14 09:51 | P.PN ---
Subjective Date of Service: 01/14/23 Chief Complaint: TENDS TO SWAY ON RIGHT SIDE ON WALKING. Subjective: Improving MR. HERRERA HAS DEMENTIA AND A MEDULLARY STROKE NOW. HE LEANS ON R SIDE WHILE WALKS AND NEEDS PT. SEE PT CARLOZ FOR DETAILS. HE IS STABLE. NO CHEST PAIN. Physical Examination - Vital Signs Temperature: 97.4 F Blood Pressure: 184/81 Pulse: 64 Respirations: 18 Pulse Ox (%): 99 - Physical Exam General: Alert, In no apparent distress HEENT: Atraumatic, PERRLA, EOMI Neck: Supple, JVD not distended Respiratory: Clear to auscultation bilaterally, Normal air movement Cardiovascular: Regular rate/rhythm, Normal S1 S2 Gastrointestinal: Normal bowel sounds, No tenderness Musculoskeletal: No tenderness Integumentary: No rashes Neurological: Normal speech, Abnormal gait (TENDS TO FALL ON R SIDE), Dementia Lymphatics: No axilla or inguinal lymphadenopathy - Studies Medications List Reviewed: Yes Assessment And Plan - Current Problems (Diagnosis) (1) Infarction of medulla oblongata Current Visit: Yes Status: Acute Plan: RIGHT SIDE START PLAVIX AMLODIPINE CLONIDINE FOR SEVERE HTN. PT CONSULT REHAB CONSULT. PT CARLOZ DONE REHAB REF PENDING AWAITING INS DECISION (2) Seizure, absence Current Visit: Yes Status: Acute Plan: DURING THIS 3 DAYS HE HAD EPISODE WHERE HIS EYES ROLLED AND HE GOT ON THE FLOOR. START KEPPRA HE IS HIGH RISK OF STROKE.
[2023-01-14] MEDS: cloNIDine HCL 0.1 MG TAB PO PRN (16:20)
[2023-01-14] MEDS: ENOXAPARIN 40 MG/0.4 ML SQ SCH (16:21)
[2023-01-14] MEDS: MELATONIN 5 MG TABLET PO PRN (20:13)
[2023-01-15] MEDS: CLOPIDOGREL 75 MG TABLET PO SCH (08:45)
[2023-01-15] MEDS: AMLODIPINE 5 MG TAB PO SCH (08:45)
[2023-01-15] MEDS: ASPIRIN EC 81 MG TAB PO SCH (08:46)
[2023-01-15] MEDS: levETIRAcetam 500 MG TAB PO SCH (08:46)
[2023-01-15] MEDS: DONEPEZIL HCL 5 MG TAB PO SCH (08:46)
[2023-01-15 08:47] VITALS: BP 153/72
[2023-01-15] MEDS ORDERED: POTASSIUM CL SA 10 MEQ TAB PO ONE (09:00)
[2023-01-15 09:58] VITALS: TEMP 97.8
--- NOTE | 2023-01-15 19:43 | P.DS ---
Admission Date: 01/12/23 Discharge Date: 01/15/23 Disposition: TRANSFER TO INPATIENT REHAB Discharge Condition: FAIR Reason for Admission: TENDS TO SWAY ON RIGHT SIDE ON WALKING. - Problems (1) Infarction of medulla oblongata Status: Acute (2) Seizure, absence Status: Acute Brief History of Present Illness: MR. HERRERA HAD EPISODE OF CONFUSION 3 DAYS AGO AND I SAW HIM LEANING TO RIGHT SIDE. I SENT HIM TO ER FROM OFFICE, DR. DIAZ DID EVAL AND DID NOT FIND ANYTHING ON CT BRAIN AND CT ANGIOGRAM. I ASKED HIM TO DO MRI BUT HE COULD NOT HAVE IT DONE IN ER. MR HERRERA CONTINUED ASPIRIN BUT GOT WORSE AT HOME. HE IS BACK TODAY. ER COULD DO MRI TODAY AND FOUND HIM TO HAVE 6 MM MEDULAR INFARCT ON R SIDE. HE IS NOW ADMITTED FOR REHAB. Hospital Course: NATASHA HAD A MEDULLARY STORKE WITH LEANING TO R SIDE. HE IS NOW IN REHAB HE ALREADY HAS FALLEN WITH IMBALANCE. Vital Signs/Physical Exam: Temp Pulse Resp BP Pulse Ox 97.8 F 70 18 153/72 H 94 01/15/23 08:00 01/15/23 08:00 01/15/23 08:00 01/15/23 08:45 01/15/23 08:00 Laboratory Data at Discharge: WBC 7.40 thou/uL (4.3-10.9) 01/12/23 12:28 Hgb 14.3 g/dL (13.6-17.9) 01/12/23 12:28 Hct 41.7 % (39.6-49.0) 01/12/23 12:28 Plt Count 211 thou/uL (152-406) 01/12/23 12:28 PT 10.5 SECONDS (9.5-12.5) 01/12/23 12:28 INR 0.95 01/12/23 12:28 APTT 29.4 SECONDS (24.3-36.9) 01/12/23 12:28 Sodium 133 mEq/L (136-145) L 01/12/23 12:28 Potassium Cancelled 01/15/23 15:00 BUN 9 mg/dL (7-18) 01/12/23 12:28 Creatinine 0.75 mg/dL (0.70-1.30) 01/12/23 12:28 Glucose 113 mg/dL (74-106) H 01/12/23 12:28 Magnesium 2.1 mg/dL (1.6-2.4) 01/12/23 12:28 Total Bilirubin 0.8 mg/dL (0.2-1.0) 01/12/23 12:28 AST 12 U/L (15-37) L 01/12/23 12:28 ALT 20 U/L (16-61) 01/12/23 12:28 Alkaline Phosphatase 47 U/L (45-117) 01/12/23 12:28 Triglycerides 80 mg/dL (<150) 01/13/23 02:19 Cholesterol 274 mg/dL (<200) H 01/13/23 02:19 HDL Cholesterol 78 mg/dL (40-60) H 01/13/23 02:19 Cholesterol/HDL Ratio 3.51 01/13/23 02:19 Home Medications: Donepezil [Aricept*] 5 mg PO DAILY 01/12/23 Amlodipine [Norvasc*] 5 mg PO BID tab 01/15/23 Clopidogrel Bisulfate [Plavix*] 75 mg PO DAILY 01/15/23 Melatonin 10 mg PO BEDTIME PRN PRN 01/15/23 cloNIDine HCL [Catapres*] 0.1 mg PO Q2H PRN tab 01/15/23 levETIRAcetam [Keppra*] 500 mg PO BID tab 01/15/23 Physician Discharge Instructions: PROBLEM: CVA - Stroke, Hypertension GOAL: Clear understanding of disease process INSTRUCTIONS: Return to ER for any worsening of symptoms Call 4th floor nursing for any questions about your stay Follow up as directed with your PCP Diet: Heart Healthy Activity: Per Rehab Followup: Twan Tapia MD [Primary Care Provider] -
== END 2023-01-15 13:00 | DRG 65 ==
LOC: ER 10:42 → ERHOLD 17:02 → 4TH 19:12
PROVIDERS: ADMIT Internal Medicine; ATTEND Internal Medicine
DX: I63.89 Other cerebral infarction (principal); G81.91 Hemiplegia, unspecified affecting right dominant side; I10 Essential (primary) hypertension; F03.90 Unspecified dementia, unspecified severity, without behavioral disturbance, psychotic disturbance, mood disturbance, and anxiety; R29.704 NIHSS score 4
CPT/HCPCS: 36415; 70450; 70553; 71045; 80048; 80061; 80076; 82947; 83735; 84132; 84484; 85025; 85610; 85730; 92523; 93005; 96365; 96375; 97110; 97112; 97162; 97530; 99285; A9577; J1650; J2765

== ENCOUNTER 2023-01-15 08:31 | Inpatient (IN) | payer OTHER ==
--- OUTSIDE RECORDS SUMMARY | 2023-01-15 13:24 | XMS REPORT | Continuity of Care Document ---
:1945 Author Organization [facility] t Address [address] [place] [address] Care Team Providers Name Role Phone Willie SALAZAR, Twan Primary Care Physician [place] SALAZAR, Josh Griffith Attending Clinician Riana RN, Yung Attending Clinician Unavailable Payers Payer Name Policy Type Policy Number Effective Date Expiration Date S ource Problems This patient has no known problems. Allergies, Adverse Reactions, Alerts This patient has no known allergies or adverse reactions. Family History Family Member Diagnosis Comments Start Date Stop Date Source Natural father Throat cancer [facility] Natural sister Other [facility] Social History Social Habit Start Date Stop Date Quantity Comments Source Gender identity 2022-06-30 Identifies as [facility] gender [facility] (finding[facility] History [facility] tobacco Cigarette Smoker [facility] Alcohol intake 2022-12-28 2022-12-28 Current drinker [facility] 00:00:00 00:00:00 of alcohol Hospital (finding) History of Social 2022-12-28 2022-12-[address] function 00:00:00 00:00:00 Hospital Education 2022-10-17 2022-10-17 18 [facility] 00:[facility]00 [facility] Tobacco Comment 2022-10-17 2022-10-17 QUIT smoking in [facility] 00:00:00 00:00:[address] [place] [address] Alcohol Comment 2022-10-17 2022-10-17 socially [facility] Tobacco use and 2022-10-17 2022-10-17 Smokeless tobacco [facility] exposure 00:00:00 00:00:00 non-user Hospital Sex Assigned At [birth year] [facility] 00[facility] Hospital Smoking Status Start Date Stop Date Source Ex-smoker 2022-10-17 00:00:00 2022-10-17 00:00:00 [facility] Medications Ordered Filled Start Stop Current Ordering Indication Dosage Frequency Signature Comments Components Source Medication Medication Date Date Medication? Clinician (SIG) Name Name UNABLE TO 2022-0 202- No Stem Cell [facility] FIND 12-[address] 15:25: 00:00 2/day Hospita 02 :00 l UNABLE TO 3-0 2022- No Stem Cell [facility] FIND 12-[address] 15:25: 00:00 2/day Hospita 02 :00 l UNABLE TO 2023-0 2022- No Stem Cell [facility] FIND 12-[address] 15:25: 00:00 2/day Hospita 02 :00 l UNABLE TO 2023-0 Yes 800ug 800 mcg. Met khushbui FIND 12-28 Med Name: st 14:15: Methyl[facility]ola Hospita 27 te 5 x l wkly UNABLE TO 2023-0 Yes 800ug 800 mcg. Met khushbui FIND 12-28 Med Name: st 14:15: [facility] 27 te 5 x l wkly UNABLE TO 2023-0 Yes 800ug 800 mcg. Met hodi FIND 12-28 Med Name: 14:15: [facility] 27 te 5 x [...] cyanocobala Yes Take by Met romelia min, [address] vitamin 14:12: 1000 mcg Hospit a B-12, 33 daily l (VITAMIN B-12 ORAL) cholecalcif Yes Take by Met [facility] mary carmen, 8-[address] vitamin D3, 14:12: mcg/ day Ho spita (VITAMIN D3 33 l ORAL) aspirin 2022-0 Yes 81mg QD Take 1 [facility] (ECOTRIN) 8-30 tablet (81 st 81 MG 14:12: mg total) Hospita enteric 33 by mouth l coated daily. tablet ascorbic 3-0 Yes 500mg QD Take 1 Method i acid, 8-[address] vitamin C, 14:12: (500 mg Hosp tamra (VITAMIN C) 33 total) by l 500 MG mouth tablet daily. 5 x wkly docosahexae 2022-0 Yes 1100mg Take 1,100 Method[facility] noic 8-[address] acid/epa 14:12: mouth. 5 Hospi ta (FISH OIL 33 days a l ORAL) week turmeric/tu 2022-0 Yes 500mg Take 500 M ethodi rmeric 8-[address] ext/pepr 14:12: mouth. 5 Hospi ta ext 33 days wkly l (turmeric-t urmeric ext-pepper) 500-3 mg capsule LUTEIN-ZEAX 2022-0 Yes 10mg Take 10 mg Method[facility] ANTHIN ORAL 8-[address] 14:12: 10 MG EACH Hospita 33 l ELDERBERRY 2022-0 Yes 1{capsu Take 1 Me [facility] FRUIT ORAL 8-30 le} capsule by st 14:12: mouth. Hospita 33 1600 mg 5 l days weekly with zinc and vit c Lactobacill 2022-0 Yes 120mg Take 120 M ethodi us 8-[address] acidophilus 14:12: mouth. Hosp tamra (PROBIOTIC 33 daily l ORAL) cyanocobala 2022-0 Yes Take by Met romelia min, 8-[address] vitamin 14:12: 1000 mcg Hospit a B-12, 33 daily l (VITAMIN B-12 ORAL) cholecalcif 2022-0 Yes Take by Met khushbui mary carmen, 8-[address] vitamin D3, 14:12: mcg/ day Ho spita (VITAMIN D3 33 l ORAL) aspirin 2022-0 Yes 81mg QD Take 1 [facility] (ECOTRIN) [...] 33 days a l ORAL) week turmeric/tu 2022-0 Yes 500mg Take 500 M ethodi rmeric [...] tamra (PROBIOTIC 33 daily l ORAL) cyanocobala 2022-0 Yes Take by Met romelia min, 8-[address] vitamin 14:12: 1000 mcg Hospit a B-12, 33 daily l (VITAMIN B-12 ORAL) cholecalcif 2022-0 Yes Take by Met romelia mary carmen, 8-[address] vitamin D3, 14:12: mcg/ day Ho spita (VITAMIN D3 33 l ORAL) aspirin 2022-0 Yes 81mg QD Take 1 [facility] (ECOTRIN) [...] 33 days a l ORAL) week turmeric/tu Yes 500mg Take 500 M ethodi rmeric 8-[address] ext/pepr 14:12: mouth. 5 Hospi ta ext 33 days wkly l (turmeric-t urmeric ext-pepper) 500-3 mg capsule LUTEIN-ZEAX Yes 10mg Take 10 mg [facility] ANTHIN ORAL 8-[address] 14:12: 10 MG EACH Hospita 33 l donepeziL 2023- Yes 5mg QD Take 1 Meth[facility] di (Aricept) 5 8- 08-30 tablet (5 st MG tablet 00:00: 04:59 mg total) Ho spita 00 :00 by mouth l nightly. donepeziL 2023- Yes 5mg QD Take 1 [facility] di (Aricept) 5 8-30 08-30 tablet (5 st MG tablet 00:00: 04:59 mg total) Ho spita 00 :00 by mouth l nightly. donepeziL 2023- Yes 5mg QD Take 1 Metho di (Aricept) 5 12-28 08-30 tablet (5 st MG tablet 00:00: 04:59 mg total) Ho spita 00 :00 by mouth l nightly. UNABLE TO 2022-0 Yes Curaphex-E [facility] FIND 6-[address] 09:02: mg / day Hospita 20 l UNABLE TO 2022-0 Yes 144mg 144 mg. Meth savita FIND 6- Neuro-Mag st 09:02: 2 per day Hospita 20 l UNABLE TO 2022-0 Yes 1000mg 1,000 mg. M ethodi FIND 6- provasil st 09:02: 2/day Hospita 20 l melatonin 0 Yes Take by Meth[facility] di 10 mg 6-[address] tablet 09:02: nightly Hospita 20 l UNABLE TO 2022-0 Yes 1{capfu 1 Capful. Methodi FIND 6-23 l} Med st 09:02: Name:[facility] Hospita 20 otanical l UNABLE TO 2022-0 Yes Curaphex-E Me [facility] FIND 6-[address] 09:02: mg / day Hospita 20 l UNABLE TO 2023-0 Yes 144mg 144 mg. Meth [facility]ita FIND 6-[address] 09:02: 2 per day Hospita 20 l UNABLE TO 2023-0 Yes 1000mg 1,000 mg. M ethodi FIND 6-[address] 09:02: 2/day Hospita 20 l melatonin 3-0 Yes Take by Meth[facility] di 10 mg 6-[address] tablet 09:02: nightly Hospita 20 l UNABLE TO 2023-0 Yes 1{capfu 1 Capful. Methodi FIND 6-23 l} Med st 09:02: Name:[facility] Hospita 20 otanical l UNABLE TO 2023-0 Yes Curaphex-E [facility] FIND 6-[address] 09:02: mg / day Hospita 20 l UNABLE TO 2023-0 Yes 144mg 144 mg. Meth [facility] FIND 6-[address] 09:02: 2 per day Hospita 20 l UNABLE TO 2023-0 Yes 1000mg 1,000 mg. M ethodi FIND 6-[address] 09:02: 2/day Hospita 20 l melatonin 3-0 Yes Take by Meth[facility] di 10 mg 6-[address] tablet 09:02: nightly Hospita 20 l UNABLE TO 2023-0 Yes 1{capfu 1 Capful. [facility] FIND 6-23 l} Med st 09:02[facility] Vital Signs Vital Name Observation Time Observation Value Comments Source Systolic blood 2022-12-28 19:19:00 131 mm[Hg] [facility] pressure Diastolic blood 2022-12-28 19:19:00 70 [facility]Hg[facility] pressure Heart rate 2022-12-28 19:19:00 75 /min [facility] Body temperature 2022-12-28 19:07:00 36.28 [facility] Body height 2022-12-28 19:07:00 162.6 cm [facility] Body weight 2022-12-28 19:07:00 67.132 kg [facility] BMI 2022-12-28 19:07:00 25.40 kg/m2 [facility] Procedures Procedure Date / Time Performed Performing Clinician Sourc e URINE CULTURE 2022-10-21 17:27:00 [facility] MTHFR MUTATION 2022-10-21 17:27:00 [facility] HOMOCYSTINE, PLASMA 2022-10-21 17:27:00 [facility] HEMOGLOBIN A1C 2022-10-21 17:27:00 [facility] FOLATE, RBC 2022-10-21 17:27:00 [facility] VITAMIN D 25 HYDROXY 2022-10-21 17:27:00 [facility] LEVEL VITAMIN B6 LEVEL, 2022-10-21 17:27:00 [facility] PLASMA VITAMIN B12 LEVEL 2022-10-21 17:27:00 [facility] VITAMIN B1 (THIAMINE) 2022-10-21 17:27:[address] [facility] URINALYSIS SCREEN AND 2022-10-21 17:27:[address] [facility] MICROSCOPY, WITH REFLEX TO CULTURE Plan of Care Planned Activity Planned Date Details Comments Source Future Scheduled 2023-01-02 COVID-19 VACCINE (#1) [facility] Test 09:06:47 [code = COVID-19 VACCINE (#1)] Future Scheduled 2023-01-02 Hepatitis C screening [facility] Test 09:06:47 (procedure) [code = 391139082] Future Scheduled 2023-01-02 SHINGLES VACCINES (1 [facility] Test 09:06:47 of 2) [code = SHINGLES VACCINES (1 of 2)] Future Scheduled 2023-01-02 [address] [facility] Test 09:06:47 VACCINE (1 - PCV) [code = 65+ PNEUMOCOCCAL VACCINE (1 - PCV)] Future Scheduled 2023-01-02 INFLUENZA VACCINE (#1) [facility] Test 09:06:47 [code = INFLUENZA VACCINE (#1)] Future Scheduled 2023-01-02 INFLUENZA VACCINE (#1) [facility] Test 09:06:47 [code = INFLUENZA VACCINE (#1)] Future Scheduled 2023-01-02 COVID-19 VACCINE (#1) [facility] Test 09:06:47 [code = COVID-19 VACCINE (#1)] Future Scheduled 2023-01-02 Hepatitis C screening [facility] Test 09:06:47 (procedure) [code = 156138137] Future Scheduled 2023-01-02 SHINGLES VACCINES (1 [facility] Test 09:06:47 of 2) [code = SHINGLES VACCINES (1 of 2)] Future Scheduled 2023-01-02 65+ [facility]OCOCCAL [facility] Test 09:06:47 VACCINE (1 - PCV) [code = 65+ PNEUMOCOCCAL VACCINE (1 - PCV)] Future Scheduled 2023-01-02 INFLUENZA VACCINE (#1) [facility] Test 09:06:47 [code = INFLUENZA VACCINE (#1)] Future Scheduled 2023-01-02 COVID-19 VACCINE (#1) [facility] Test 09:06:47 [code = COVID-19 VACCINE (#1)] Future Scheduled 2023-01-02 Hepatitis C screening [facility] Test 09:06:47 (procedure) [code = 727199235] Future Scheduled 2023-01-02 SHINGLES VACCINES (1 [facility] Test 09:06:47 of 2) [code = SHINGLES VACCINES (1 of 2)] Future Scheduled 2023-01-02 65+ PNEUMOCOCCAL [facility] Test 09:06:47 VACCINE (1 - PCV) [code = 65+ PNEUMOCOCCAL VACCINE (1 - PCV)] Encounters Start End Encounter Admission Attending Care Care Encounter Source Date/Time Date/Time Type Type Clinicians Facility Department ID 2022-12-28 2022-12-28 Office Lexi Haynes.2.840.1 [id number] [facility] 13:45:00 14:53:48 Visit Josh Griffith 53735.1.1 412 s t 3.430.2.7 Hospit a Arnold3.222637 l .8 2022-12-28 2022-12-28 Office Roberth Haynes2.840.1 [id number] [facility] 13:45:00 14:53:48 Visit Josh Griffith 21958.1.1 412 s t 3.430.2.7 Hospit a Arnold3.366889 l .8 2022-10-21 2022-10-21 Lab [place], 1.2.840.1 [id number] [facility] 11:20:00 11:25:00 Josh C. 92394.1.1 734 s t 3.430.2.7 Hospit a .3.191426 l .8 2022-10-21 2022-10-21 Lab [place], 1.2.840.1 [id number] [facility] 11:20:00 11:25:00 Josh C. 39486.1.1 734 s t 3.430.2.7 Hospit a .3.893970 l .8 2022-10-21 2022-10-21 Office [place], 1.2.840.1 [id number] [facility] 09:00:00 11:06:55 Visit Josh C. 29405.1.1 158 s t 3.430.2.7 Hospit a .3.095523 l .8 2022-10-21 2022-10-21 Office [place], 1.2.840.1 [id number] [facility] 09:00:00 11:06:55 Visit Josh C. 82964.1.1 158 s t 3.430.2.7 Hospit a .3.521602 l .8 2022-10-17 2022-10-17 Refill [place], 1.2.840.1 [id number] [facility]i 00:00:00 00:00:[address] 3.430.2.7 Hospit a .3.407137 l .8 2022-10-17 2022-10-17 Refill [place], 1.2.840.1 [id number] Methodi 00:00:00 00:00:[address] 3.430.2.7 Hospit a .3.620623 l .8 2022-07-20 2022-07-20 Orders [place], 1.2.840.1 [id number] [facility] 00:00:00 00:00:00 Only Josh C. 19867.1.1 582 s t 3.430.2.7 Hospit a .3.682169 l .8 2022-07-20 2022-07-20 Orders [place], 1.2.840.1 [id number] [facility] 00:00:00 00:00:00 Only Josh Pang. 70220.1.1 582 s t 3.430.2.7 Hospit a .3.799352 l .8 2022-06-30 2022-06-30 Transcribe [place], 1.2.840.1 [id number] Methodi 00:00:00 00:00:00 Orders Josh Pang. 50913.1.1 211 s t 3.430.2.7 Hospit a .3.633641 l .8 2022-06-30 2022-06-30 Transcribe [place], 1.2.840.1 [id number] [facility] 00:00:00 00:00:00 Orders Josh Pang. 90220.1.1 211 s t 3.430.2.7 Hospit a .3.317921 l .8 Results Test Description Test Time Test Comments Results Result Comments Source Urine culture 2022-10-21 18:59:00 Test Item Value Reference Range Interpretation Comme nts Urine culture (test code = 1435017) SEE COMMENT [facility], with reflex to culture 2022-10-21 18:59:00 Test Item Value Reference Range Interpretation Comments Specimen site (test Clean catch code = 3975216) Color, UA (test code Straw = 5778-6) Appearance, UA (test Clear code = 5767-9) Specific gravity, UA 1.013 1.001-1.035 (test code = 5811-5) pH, UA (test code = 6.0 5.0-8.5 5803-2) Protein, UA (test Negative Negative code = 11248-6) Glucose, UA (test Negative Negative code = 57875-7) Ketones, UA (test Negative Negative code = 2514-8) Bilirubin, UA (test Negative Negative code = 5770-3) Blood, UA (test code Negative Negative = 5794-3) Nitrite, UA (test Negative Negative code = 5802-4) Urobilinogen, UA <2.0 See_Comment [Automated message] (test code = The system [employer] 41853-1) generated this result transmitted ref erence range: <=2.0. T he reference range was not used to int erpret this result as normal/abnormal . Leukocyte esterase, Negative Negative UA (test code = 5799-2) WBC, UA (test code = See_Comment [Autom ated message] 5821-4) The system [employer] generated this result transmitted ref erence range: 0 - 1 /H PF. The reference range was not used to int erpret this result as normal/abnormal . RBC, UA (test code = 1 See_Comment [Autom ated message] 73440-6) The system [employer] generated this result transmitted ref erence range: 0 - 5 /H PF. The reference range was not used to int erpret this result as normal/abnormal . Bacteria, UA (test None seen None seen code = 88625-6) Yeast, UA (test code None seen = 28091-8) Yeast with None seen pseudohyphae, UA (test code = 44249-2) [id number]:59[facility]00 Test Item Value Reference Range Interpretation Comments Urine culture (test SEE COMMENT Bacteriu chaitanya screen code = 7385510) negative. [facility], with reflex to culture 2022-10-21 18:59:00 Test Item Value Reference Range Interpretation Comments Specimen site (test Clean catch code = 5559790) Color, UA (test code Straw = 5778-6) Appearance, UA (test Clear code = 5767-9) Specific gravity, UA 1.013 1.001-1.035 (test code = 5811-5) pH, UA (test code = 6.0 5.0-8.5 5803-2) Protein, UA (test Negative Negative code = 23156-6) Glucose, UA (test Negative Negative code = 88540-8) Ketones, UA (test Negative Negative code = 2514-8) Bilirubin, UA (test Negative Negative code = 5770-3) Blood, UA (test code Negative Negative = 5794-3) Nitrite, UA (test Negative Negative code = 5802-4) Urobilinogen, UA <2.0 See_Comment [Automated message] (test code = The system [employer] 39648-5) generated this result transmitted ref erence range: <=2.0. T he reference range was not used to int erpret this result as normal/abnormal . Leukocyte esterase, Negative Negative UA (test code = 5799-2) WBC, UA (test code = See_Comment [Autom ated message] 5821-4) The system [employer] generated this result transmitted ref erence range: 0 - 1 /H PF. The reference range was not used to int erpret this result as normal/abnormal . RBC, UA (test code = 1 See_Comment [Autom ated message] 68641-8) The system [employer] generated this result transmitted ref erence range: 0 - 5 /H PF. The reference range was not used to int erpret this result as normal/abnormal . Bacteria, UA (test None seen None seen code = 37740-6) Yeast, UA (test code None seen = 92562-8) Yeast with None seen pseudohyphae, UA (test code = 46855-3) [facility] [id number] 18:59:00 Test Item Value Reference Range Interpretation Comments Urine culture (test SEE COMMENT Bacteriu chaitanya screen code = 9192041) negative. [facility], with reflex to culture 2022-10-21 18:59:00 Test Item Value Reference Range Interpretation Comments Specimen site (test Clean catch code = 4887965) Color, UA (test code Straw = 5778-6) Appearance, UA (test Clear code = 5767-9) Specific gravity, UA 1.013 1.001-1.035 (test code = 5811-5) pH, UA (test code = 6.0 5.0-8.5 5803-2) Protein, UA (test Negative Negative code = 26273-4) Glucose, UA (test Negative Negative code = 63844-0) Ketones, UA (test Negative Negative code = 2514-8) Bilirubin, UA (test Negative Negative code = 5770-3) Blood, UA (test code Negative Negative = 5794-3) Nitrite, UA (test Negative Negative code = 5802-4) Urobilinogen, UA <2.0 See_Comment [Automated message] (test code = The system [employer] 92815-9) generated this result transmitted ref erence range: <=2.0. T he reference range was not used to int erpret this result as normal/abnormal . Leukocyte esterase, Negative Negative UA (test code = 5799-2) WBC, UA (test code = See_Comment [Autom ated message] 5821-4) The system [employer] generated this result transmitted ref erence range: 0 - 1 /H PF. The reference range was not used to int erpret this result as normal/abnormal . RBC, UA (test code = 1 See_Comment [Autom ated message] 64234-6) The system [employer] generated this result transmitted ref erence range: 0 - 5 /H PF. The reference range was not used to int erpret this result as normal/abnormal . Bacteria, UA (test None seen None seen code = 44091-0) Yeast, UA (test code None seen = 56501-8) Yeast with None seen pseudohyphae, UA (test code = 19901-3) [facility]
[2023-01-15] MEDS ORDERED: cloNIDine HCL 0.1 MG TAB PO PRN (13:47)
[2023-01-15] MEDS ORDERED: ACETAMINOPHEN 500 MG TAB PO PRN (14:03)
[2023-01-15 16:21] LABS: Specific Gravity 1.018 (1.005-1.030); Urine Bacteria <20 /HPF (<20); Urine Bilirubin NEGATIVE (Negative); Urine Blood Negative (Negative); Urine Clarity Turbid (Clear); Urine Color Light-Yellow (Yellow); Urine Glucose TRACE (Negative); Urine Mucus Slight /HPF (None Seen); Urine Protein NEGATIVE (Negative); Urine RBC <5 /HPF (None Seen); Urine Urobilinogen Normal (Normal)
[2023-01-15] MEDS: ENOXAPARIN 40 MG/0.4 ML SQ SCH (16:33)
[2023-01-15] MEDS: DOCUSATE NA/SENNA CONC 1 TAB PO PRN (19:29)
[2023-01-15] MEDS: AMLODIPINE 5 MG TAB PO SCH (19:29)
[2023-01-15] MEDS: MELATONIN 5 MG TABLET PO PRN (19:30)
[2023-01-15] MEDS: DONEPEZIL HCL 5 MG TAB PO SCH (19:30)
[2023-01-15] MEDS: levETIRAcetam 500 MG TAB PO SCH (19:30)
--- NOTE | 2023-01-16 01:55 | HP ---
Date of Admission: 01/15/2023 Time Of Service: 2 p.m. Chief Complaint: Falling to the right side when walking. History Of Present Illness: Mr. Norman is a 77-year-old right-handed patient with history of dementia, seizures, hypertension who comes to [facility] after he was seen by his primar care physician, Dr. Tapia in office where the patient and his noted confusion for at least 3 d ays and leaning to his right side and falling towards the right side when ambulating. The patient do es recall falling and bruising the right elbow and shoulder with one of his falls. His evaluation at [facility] by MRI on the , today is the 15 of January, identified a 6 mm area of ac tribal infarct in the right medulla. It is noted that at that area, the fibers from the left brain may have decussated and will then therefore represent weakness or loss of function, in this case, coordin ation on the right side for which the patient is falling. This is the area that likely explains the patient's deficits of falling significantly to the right side as he has some difficulty with percepti on of where his body is in space and the coordination of his body. He does have some degree of hypon atremia, slightly elevated glucose and uncontrolled blood pressures. He was also started on Keppra f or the possibility of this being seizures with Eric's related paralysis. He is put on Plavix, aspiri n, folic acid to reduce stroke risk. Given that the patient is unable to ambulate without significan t risk of additional falls and potential breaking bones along with need for aggressive medical manage ment and adjustment of medications, he is determined to be an appropriate candidate for inpatient hayden abilitation and is therefore admitted for physical, occupational, and speech therapy in the inpatient rehabilitation unit. Past Medical History: As noted above including hypertension, dementia, seizures, dyslipidemia. Family History: Noncontributory. Allergies: NO KNOWN DRUG ALLERGIES. Imaging Data: MRI on 01/12/2023 showed a 6 mm acute infarct in the right medulla. Chest x-ray on 01/12 showed no acute intrathoracic processes. His electrocardiogram on 01/12 showed sinus bradycardia, rate of 45, right bundle-branch block. Laboratory Studies: His complete blood count with differential on 01/12/2023 is completely normal. White blood cell count 7.4, hemoglobin 14.3, platelets 211. INR 0.95. His chemistries show slightly low sodium at 133, otherwise, potassium, chloride, carbon dioxide, BUN, creatinine all normal, creat inine is 0.75. Glucose was up to 116, calcium 8.5, magnesium 2.1, AST 12, ALT 20. His total cholest mary carmen elevated at 274, LDL cholesterol elevated to 180. His HDL cholesterol, which is good cholestero l is at 78. His urinalysis pending. Medications: Tylenol 500 mg every 4 hours as needed, Norvasc 5 mg twice daily, aspirin 81 mg daily, Catapres 0.1 mg every 2 hours as needed for systolic greater than 170, Plavix 75 mg daily, Aricept 5 mg at bedtime, Lovenox 40 mg subcutaneously daily, Keppra 500 mg twice daily, melatonin 10 mg at bedt josep, Senokot-S two at bedtime. Family History: Noncontributory. Review of Systems: The patient and his notes no recent fevers, chills, nausea, vomiting. No myalgias, arthralgias, rash, headache, weight change, but the tendency to drift towards right side heavily as patient sit, stands and ambulates, otherwise, negative on a 10 point systems review. Physical Examination: Vital Signs: Blood pressure 136/62, pulse of 71, respiratory rate 18, temperature 97.1, oxygen satur ation 96%. General: Mr. Norman is resting in bed. He is in no acute distress. Does have some bruising on the right elbow, right arm from his recent fall to the right side. No injury noted to the neck, head an d to the rest of the body. HEENT: Sclerae anicteric. Oropharynx pink moist. Neck: Supple. Chest: Clear. Heart: Regular. Extremities: Show no significant clubbing, cyanosis, or edema. Neurological: He is alert, oriented to person and situation. He follows commands appropriately. No obvious cranial nerve deficits, but does have incoordination of right upper extremity with dysmetria noted and also right lower extremity with [id number], [id number]. Otherwise, sensation is int act [id number]. Reflexes symmetric. Current Level Of Functioning: He is at moderate assist for eating, oral hygiene, toileting, bathing, upper and lower body dressing, and rolling right to left and [id number], sitting in bed, maximum assistance with [id number]-[id number] and transferring to chair, to toilet and currently maximum assist with t rying to ambulate. Zero distance so far. Rehabilitation And Medical Assessment And Plan: Mr. Norman is admitted to the inpatient rehabilitat ion unit with impairment category 01 stroke. His impairment group code is 01.4, stroke with incoordi nation and no paresis. 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 Comorbidities: Include aphasia, cognitive deficits with dementia, decreased mobility, decreased phys ical functioning, difficulty walking, expressive aphasia, repeated falls, hypertension, seizure. Plan: 1.Mr. Norman will have physical and occupational along with speech therapy for 3.5 hours, 5 out of 7 days. 2.He will have Tylenol 500 mg every 4 hours as needed for pain management, Norvasc 5 mg twice daily along with clonidine 0.1 for systolic greater than 170 for blood pressure, donepezil 5 mg daily for h is dementia, aspirin 81 mg daily along with Plavix 75 mg daily for stroke risk reduction, Lovenox 40 mg subcutaneously daily for DVT risk reduction, Keppra 500 mg twice daily for seizures and Senokot-S 2 tablets at bedtime for constipation along with melatonin 10 mg at night for insomnia. Impact Of His Comorbidities On His Rehabilitation: Currently, he does have some cognitive impairment , but his is at the bedside and she will be very helpful. He will require slower pace of materi al to be given to him for him to comprehend and to be able to make safe decisions that will likely re quire ongoing improvement in cognitive functioning. Currently, he is at low-dose Aricept that will b e adjusted to 10 mg daily as appropriate. His stroke does allow him to have good strength, but without the coordination, he is again at high ri sk of falling and he will have a gait belt and a walker, but he is likely to improve given he has goo d strength and areas involving the stroke tend to improve, although it is difficult to assess how muc h he will improve, but once he starts to ambulate, it may be determined by rate of progress. Rehabilitation And Medical Assessment And Plan: 1.Mr. Norman will have 3.5 hours, 5 out of 7 days for physical, occupational and speech therapy. P carmine will be to improve his ability to transfer from bed to toilet, to shower and ambulate 250 feet wi th modified independence, up and down 10 steps with modified independence and perform cognitive funct ioning with modified independence. 2.He will have prison throughout the day to assess his blood pressures, vital signs, temper ature included, to do blood draws as appropriate, imaging to be ordered, administering of all medicin es and keeping treatment for DVT prophylaxis going. 3.He will have physician evaluation on a daily basis to assess all of his medical needs and direct t he physical therapy. 4.He will have speech therapy to work on his comprehension, expression, understanding, making sure h e is swallowing and protecting airway. Mr. Norman and his had a good understanding of the benefits of inpatient rehabilitation with al l 3 disciplines being used. His primary care physician, Dr. Tapia will be seeing him and helping wit h management of his medical conditions. He will, if need be, have help from the Respiratory Service, Nutrition Service as need be. Given his complex medical condition and risk of further complications , rehabilitation cannot be safely or effectively provided at a lower level of care such as skilled nu rsing. Barriers To Discharge: He does have some cognitive impairment, but Speech Therapy will work with him . Estimated Length Of Stay: About 10 days. Disposition: Home with . Prognosis: Good. Rehabilitation Goals: 1.To be able to independently transfer from bed to chair, to toilet, to shower and to perform shower ing toileting, upper and lower body dressing. 2.Independently ambulate 250 feet with a rolling walker. 3.Independently propel a wheelchair to 500 feet. 4.Independently go up and down 10 steps. 5.Independently perform cognitive functioning. The above goals were reviewed with the patient and his and they are in agreement. By signing this document, I acknowledge I have personally performed a full physical examination on Mr Arnold Norman no later than 24 hours after his admission to the inpatient rehabilitation facility and det ermined that he is able to tolerate the above course of treatment at an intensive level for a reasona ble period of time. A detailed individualized plan of care for him will be completed by hospital day 4 based on the preadmission screen, history and physical, and therapy evaluations. DARYL/BEVERLY Voice ID: [id number]
[2023-01-16 04:10] LABS: Absolute Lymphocytes (CBC) 2.2 K/uL (0.7-4.9); Lymphocytes % 24.4 % (15.3-44.8); MCV 94.1 fL (80-100); MPV 8.4 fL (7.6-11.3); Platelets 222 thou/uL (152-406); RBC Red Blood Cell Count 4.25 M/uL (4.33-5.43)
[2023-01-16 04:26] LABS: Albumin 3.2 g/dL (3.4-5.0); Magnesium 2.1 mg/dL (1.6-2.4); Potassium 3.8 mEq/L (3.5-5.1); Prealbumin 25.4 mg/dL (20-40)
[2023-01-16] MEDS: levETIRAcetam 500 MG TAB PO SCH ×2 (08:11→20:01)
[2023-01-16] MEDS: AMLODIPINE 5 MG TAB PO SCH ×2 (08:11→20:01)
[2023-01-16] MEDS: ASPIRIN EC 81 MG TAB PO SCH (08:11)
[2023-01-16] MEDS: CLOPIDOGREL 75 MG TABLET PO SCH (08:11)
[2023-01-16] MEDS: ENOXAPARIN 40 MG/0.4 ML SQ SCH (16:26)
--- NOTE | 2023-01-16 17:58 | P.PN ---
Subjective Date of Service: 01/16/23 Chief Complaint: INCOORDINATION. Subjective: No C/O voiced HE IS HERE FOR PT HASNO NEW ISSUES. Physical Examination - Vital Signs Temperature: 96.8 F Blood Pressure: 158/72 Pulse: 72 Respirations: 18 Pulse Ox (%): 95 - Physical Exam General: Oriented x2, Mild distress HEENT: Atraumatic, PERRLA, EOMI Neck: Supple, JVD not distended Respiratory: Clear to auscultation bilaterally, Normal air movement Cardiovascular: Regular rate/rhythm, Normal S1 S2 Gastrointestinal: Normal bowel sounds, No tenderness Musculoskeletal: No tenderness Integumentary: No rashes Neurological: Normal speech, Normal tone, Normal affect Lymphatics: No axilla or inguinal lymphadenopathy - Studies Laboratory Data (last 24 hrs) 01/16/23 01/16/23 03:53 03:53 WBC 9.00 Hgb 14.2 Hct 40.0 Plt Count 222 Sodium 135 L Potassium 3.8 BUN 17 Creatinine 0.80 Glucose 110 H Magnesium 2.1 Medications List Reviewed: Yes Assessment And Plan - Current Problems (Diagnosis) (1) 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 (2) Seizure, absence Current Visit: No Status: Chronic Plan: CONTINUE KEPPRA. (3) HTN (hypertension) Current Visit: Yes Status: Chronic Plan: AMLODIPINE BID IS WORKING SOME ADD SPIRONOLACTONE.
[2023-01-16] MEDS: SPIRONOLACTONE 25 MG TABLET PO SCH (18:00)
[2023-01-16] MEDS: DONEPEZIL HCL 5 MG TAB PO SCH (20:01)
[2023-01-16] MEDS: DOCUSATE NA/SENNA CONC 1 TAB PO PRN (20:01)
[2023-01-16] MEDS: ENSURE ENLIVE 237 ML CAN PO SCH (20:01)
--- NOTE | 2023-01-17 02:04 | PN ---
Date of Progress Note: 01/16/2023 Tooe-ae-mfdo progress note visit. Time Of Service: 1:55 p.m. Subjective: Mr. Norman is resting in bed. He is happy so far with his improvement in the right santamaria d coordination and dexterity from his right medullary stroke. He has no other subjective complaints. Review of Systems: No fevers, chills, nausea, vomiting, myalgias, arthralgias, rash, headache, weight change. No psychi atric issues. No gastrointestinal or genitourinary issues. Physical Examination: Vital Signs: Blood pressure 158/72, pulse of 72, respiratory rate 16, temperature 96.8, ox saturatio n 95%. General: Mr. Norman is resting in bed. In terms of his neurological examination, he has some diffi culty with fast fine finger movements in the right upper extremity such as touching fingers to the th umb and twisting back and forth such as rapid alternating movements. He does have mild difficulty wi th finger-nose, but no past-pointing, has difficulty achieving the target vertically. Otherwise, str ength is symmetric in upper and lower extremities. Sensation intact in upper and lower extremities. Laboratory Studies: White blood cell count 9.0, hemoglobin 14.2, hematocrit 40.0, platelets 222. So dium 135, potassium 3.8, chloride 103, BUN 17, creatinine 0.8, prealbumin 25.4, albumin 3.2, magnesiu m 2.1, calcium 8.8. Urinalysis shows trace glucose, turbid clarity, otherwise unremarkable. X-ray/imaging: No x-rays or imaging. Medications: Tylenol Extra Strength 500 mg every 4 hours as needed, Norvasc 5 mg twice daily, aspiri n 81 mg daily, clonidine 0.1 mg q.2 hours, Plavix 75 mg daily, Aricept 5 mg at bedtime, Lovenox 40 mg subcutaneous daily, Keppra 500 mg twice daily, melatonin 10 mg at bedtime, Ensure Enlive 237 mL twic e daily, Senokot-S 2 at bedtime, spironolactone 25 mg daily. Current Functional Status: Today, he was able to ambulate 75 feet 3 times with moderate assistance, propelled a wheelchair 60 feet with bilateral upper extremities with moderate assistance. With speec h therapy, he scored a 13/15 on the BIMS and 10 on the SLUMS test. Progress Towards Rehabilitation Goals: Mr. Norman is making fair overall progress with his goals to be able to ambulate with 250 feet with independence up and down 25 steps with independence and perfo rming cognitive functioning independently. He still has some difficulty with his balance, coordinati on, and tendency to fall towards the right side. Assessment And Plan: Mr. Norman is a 77-year-old patient in the rehabilitation unit with a right me dulla stroke affecting his right side in terms of coordination that is an ipsilateral finding because the fibers are decussated. He does have difficulty with his gait, coordination, and his balance. Deep starks has comorbid hypertension, cognitive impairment, epilepsy, insomnia, constipation, and hypertension . Plan: 1.Continue physical, occupational, speech therapy for 3.5 hours, 5 to 7 days. 2.Norvasc and spironolactone for hypertension along with clonidine as needed for high blood pressure . 3.Aspirin, Plavix, and Lovenox for stroke and DVT risk reduction. 4.Levetiracetam for seizures. 5.Melatonin for insomnia. 6.Ensure Enlive for malnutrition. Comorbids That Continue To Impact Rehabilitation Process: Currently, he does have a seizure risk. Deep starks is on Keppra. Seizure precautions were adhered to at all times and the patient will be observed fo r nonconvulsive type seizures as well such as sudden confusion, disorientation, or rhythmic activity of the arms and legs. LB/MODL Voice ID: [id number] Report ID: [id number]
[2023-01-17] MEDS: SPIRONOLACTONE 25 MG TABLET PO SCH (07:07)
[2023-01-17] MEDS: ASPIRIN EC 81 MG TAB PO SCH (07:07)
[2023-01-17] MEDS: CLOPIDOGREL 75 MG TABLET PO SCH (07:08)
[2023-01-17] MEDS: levETIRAcetam 500 MG TAB PO SCH ×2 (07:08→20:02)
[2023-01-17] MEDS: AMLODIPINE 5 MG TAB PO SCH ×2 (07:08→20:02)
[2023-01-17] MEDS: ENSURE ENLIVE 237 ML CAN PO SCH ×2 (08:24→20:03)
[2023-01-17] MEDS: ENOXAPARIN 40 MG/0.4 ML SQ SCH (17:32)
[2023-01-17] MEDS: DONEPEZIL HCL 5 MG TAB PO SCH (20:02)
--- NOTE | 2023-01-17 21:08 | PN ---
Date of Progress Note: 01/17/2023 Time Of Service: 12:30 p.m. Subjective: Mr. Norman is resting well. He has been moved into room 504 from [facility]. He actually has been doing quite well and has no new complaints. He is happy with improvement in his dexterity, keyonna mayes still has significant problems leaning to the right and moves and he stops as that. Review of Systems: No fevers, chills, nausea, vomiting, myalgias, or arthralgias. No rash. No psychiatric issues. Physical Examination: Vital Signs: Blood pressure 169/78, pulse of 84, respiratory rate 16, temperature 97, oxygen saturat ion 96%. General: Mr. Norman continues to have some difficulty with ataxia, wide-based gait, tendency to fal l towards the right when he is ambulating. He likely has loss of some proprioceptive input in the ri ght side related to his stroke in the right mid to left. Laboratory Studies: No new laboratory studies. X-rays/imaging: No new x-rays or imaging. Medications: Medications have been reviewed and remained unchanged. Current Functional Status: Today, he ambulated 50 feet, 80 feet, and another 180 feet, all with mini mum assistance. He did self propel a wheelchair 180 feet. He did correct his balance with cuing, bu t kept drifting to the right. He did do another 75 feet 5 times with contact guard assistance with a rolling walker. Again, severe leaning to the right side noted. With speech therapy demonstrated wo rking memory for 3 units of information with 100% accuracy and moderate assistance. He recalled 0 of 3 unrelated pictures after 5 minutes and 1 of 3 after 1 minute. Progress Toward Rehabilitation Goals: Mr. Norman is making slow progress towards his ability to amb ulate without assistance and using a rolling walker. He tends to drift heavily to the right side whe n he is walking based on the effects of his stroke. Otherwise, he does have some cognitive issues as noted by his poor recall. He mentioned about, he still has a significant amount of work to do. He does have good strength in all extremities, which is helpful. Assessment: Mr. Norman is a 77-year-old patient in the rehabilitation unit with a right medulla str pascual producing difficulty with his proprioception and his inability to maintain an upright posture and ambulate without falling to the right. He does have comorbid hypertension, epilepsy, constipation, and insomnia. Plan: 1.We will continue with physical, occupational, and speech therapy for 3.5 hours, 5 of 7 days. 2.We will continue with all comorbid condition medications including Keppra, melatonin, Ensure Enliv e, Senokot S, Aldactone, Aricept, Plavix, aspirin, Norvasc, and Tylenol. Comorbidities That Continue To Impact The Rehabilitation Process: Currently, the effects of his stro ke is the most impactful problem where he leans heavily to the right when ambulating with a tendency to fall and even sitting in the bed, tendency to drift to the right side. Aggressive therapy should begin to make an impact on that. DARYL/BEVERLY Voice ID: [id number] Report ID: [id number]
--- NOTE | 2023-01-17 21:23 | P.PN ---
Subjective Date of Service: 01/17/23 Chief Complaint: INCOORDINATION. Subjective: Improving (STABLE , WALKS WITH PT,LEANS TO RIGHT.) HE IS HERE FOR PT HASNO NEW ISSUES. Physical Examination - Vital Signs Temperature: 97.8 F Blood Pressure: 169/78 Pulse: 84 Respirations: 17 Pulse Ox (%): 95 - Physical Exam General: Oriented x3, Mild distress HEENT: Atraumatic, PERRLA, EOMI Neck: Supple, JVD not distended Respiratory: Clear to auscultation bilaterally, Normal air movement Cardiovascular: Regular rate/rhythm, Normal S1 S2 Gastrointestinal: Normal bowel sounds, No tenderness Musculoskeletal: No tenderness Integumentary: No rashes Neurological: Normal speech, Normal tone, Normal affect, Abnormal gait (LEANS TO RIGHT. TENDS TO FALL.) Lymphatics: No axilla or inguinal lymphadenopathy - Studies Microbiology Data (last 24 hrs): 01/15/23 15:35 Clean Catch Urine [place] Count - Final No growth. 01/15/23 15:35 Clean Catch Urine - Final No growth. Medications List Reviewed: Yes Assessment And Plan - Current Problems (Diagnosis) (1) 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 (2) Seizure, absence Current Visit: No Status: Chronic Plan: CONTINUE KEPPRA. (3) HTN (hypertension) Current Visit: Yes Status: Chronic Plan: AMLODIPINE BID IS WORKING SOME ADD SPIRONOLACTONE.
[2023-01-18] MEDS: ASPIRIN EC 81 MG TAB PO SCH (06:55)
[2023-01-18] MEDS: SPIRONOLACTONE 25 MG TABLET PO SCH (06:56)
[2023-01-18] MEDS: CLOPIDOGREL 75 MG TABLET PO SCH (06:56)
[2023-01-18] MEDS: HYDRALAZINE HCL 25 MG TABLET PO SCH ×3 (06:56→19:35)
[2023-01-18] MEDS: AMLODIPINE 5 MG TAB PO SCH ×2 (08:30→19:34)
[2023-01-18] MEDS: levETIRAcetam 500 MG TAB PO SCH ×2 (08:30→19:34)
[2023-01-18] MEDS: ENSURE ENLIVE 237 ML CAN PO SCH ×2 (08:30→19:34)
[2023-01-18] MEDS: ENOXAPARIN 40 MG/0.4 ML SQ SCH (16:08)
[2023-01-18] MEDS: MELATONIN 5 MG TABLET PO PRN (19:34)
[2023-01-18] MEDS: DONEPEZIL HCL 5 MG TAB PO SCH (19:35)
--- NOTE | 2023-01-18 21:20 | PN ---
Date of Progress Note: 01/18/2023 Ilay-fl-Qtxk Progress Note Time Of Service: 1:30 p.m. Subjective: Mr. Norman is doing well. He is sitting in a chair in the bathroom, attending to his o ral care. He is feeling much better about the return of coordination of the right upper and lower ex tremity, although he still has significant problems with a tendency to fall to the right when ambulat ing or sitting. Review of Systems: No fevers, chills, nausea, vomiting, myalgias, or arthralgias. No depression. No other issues. Physical Examination: Vital Signs: Blood pressure 137/69, pulse of 62, respiratory rate of 17, temperature 97.7, oxygen sa turation 96%. General: Mr. Norman is sitting comfortably in a chair. HEENT: Normocephalic, atraumatic. Sclerae anicteric. Oropharynx is pink and moist. Neck: Supple. Chest: Clear. Heart: Regular. Neurological: He has no focal motor deficits, but has the dysmetria in the right upper extremity and a tendency to fall towards the right when ambulating, that has slightly improved. Laboratory Studies: No new laboratory studies. X-ray/imaging: No new x-rays or imaging. Medications: Medications have been reviewed and remained unchanged. Current Functional Status: Today, he did a shower, washing tended to have body parts with supervisio n, upper body dressing done independently, lower body dressing required supervision, wheelchair trans adia required contact guard assistance along with shower transfer requiring contact guard assistance. He ambulated 75 feet 3 times with a rolling walker with contact guard assistance, did have correctio n of posture. He did have some severe leaning to the right as noted. He mobilized a wheelchair 350 feet with multiple rest breaks with supervision and verbal cues. With his speech, I required moderat e to maximum assistance, recall 4 of 4 unrelated items after 2 minutes. He was able to recall 2 of 2 unrelated items after 2 minutes. Progress Towards Rehabilitation Goals: Mr. Norman is making fair overall progress towards his goals of being able to ambulate with modified independence, covering 250 feet. He is still challenged by the tendency to fall towards the right, based on his right medullary stroke. He is better at mobiliz ing with a wheelchair. His transfers are improving, shower is improving. With speech, he also has s ome challenges with his cognition and focusing and recall, but that is improving as well. Assessment: Mr. Norman is a 77-year-old patient with a right medullary stroke, which is causing him to drift to the right with ambulating and while he is in sitting. He has well controlled epilepsy. He has hypertension, constipation, and insomnia. Plan: 1.Continue with physical, occupational, and speech therapy for 3.5 hours, 5 of 7 days. 2.He has multiple comorbid medications, which are managed by Dr. Tapia, his primary care physician. Those are being continued. Comorbidities That Continue To Impact His Rehabilitation: Currently, his comorbidities do not negati vely impact his rehabilitation and his biggest issue is the drifting to the right when he ambulates o r mobilizes. DARYL/BEVERLY Voice ID: [id number] Report ID: [id number]
--- NOTE | 2023-01-18 21:51 | P.PN ---
Subjective Date of Service: 01/18/23 Chief Complaint: INCOORDINATION. Subjective: Improving HE IS HERE FOR PT HASNO NEW ISSUES. HE IS GETTING STRONGER. LOVES IT HERE. Physical Examination - Vital Signs Temperature: 97.3 F Blood Pressure: 137/64 Pulse: 79 Respirations: 18 Pulse Ox (%): 95 - Physical Exam General: Oriented x2, Mild distress HEENT: Atraumatic, PERRLA, EOMI Neck: Supple, JVD not distended Respiratory: Clear to auscultation bilaterally, Normal air movement Cardiovascular: Regular rate/rhythm, Normal S1 S2 Gastrointestinal: Normal bowel sounds, No tenderness Musculoskeletal: No tenderness Integumentary: No rashes Neurological: Normal speech, Normal tone, Normal affect, Abnormal strength (R SIDE MILD WEAKNESS WITH INCOORDINATION. ) Lymphatics: No axilla or inguinal lymphadenopathy - Studies Medications List Reviewed: Yes Assessment And Plan - Current Problems (Diagnosis) (1) 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 (2) Seizure, absence Current Visit: No Status: Chronic Plan: CONTINUE KEPPRA. (3) HTN (hypertension) Current Visit: Yes Status: Chronic Plan: AMLODIPINE BID IS WORKING SOME ADD SPIRONOLACTONE.
[2023-01-19 04:22] LABS: Absolute Lymphocytes (CBC) 2.4 K/uL (0.7-4.9); Hematocrit 35.2 % (39.6-49.0); Lymphocytes % 34.2 % (15.3-44.8); MCV 93.8 fL (80-100); MPV 8.1 fL (7.6-11.3); Platelets 242 thou/uL (152-406); RBC Red Blood Cell Count 3.75 M/uL (4.33-5.43)
[2023-01-19 04:43] LABS: Magnesium 2.4 mg/dL (1.6-2.4); Potassium 3.9 mEq/L (3.5-5.1); Prealbumin 20.3 mg/dL (20-40)
[2023-01-19] MEDS: SPIRONOLACTONE 25 MG TABLET PO SCH (07:39)
[2023-01-19] MEDS: HYDRALAZINE HCL 25 MG TABLET PO SCH ×3 (07:40→19:39)
[2023-01-19] MEDS: ENSURE ENLIVE 237 ML CAN PO SCH ×2 (07:40→19:50)
[2023-01-19] MEDS: levETIRAcetam 500 MG TAB PO SCH ×2 (07:40→19:39)
[2023-01-19] MEDS: ASPIRIN EC 81 MG TAB PO SCH (07:40)
[2023-01-19] MEDS: CLOPIDOGREL 75 MG TABLET PO SCH (07:40)
[2023-01-19] MEDS: AMLODIPINE 5 MG TAB PO SCH ×2 (09:53→19:39)
[2023-01-19] MEDS: ENOXAPARIN 40 MG/0.4 ML SQ SCH (16:57)
[2023-01-19] MEDS: MELATONIN 5 MG TABLET PO PRN (19:39)
[2023-01-19] MEDS: DONEPEZIL HCL 5 MG TAB PO SCH (19:39)
--- NOTE | 2023-01-19 20:33 | PN ---
Subjective: Mr. Norman is doing better today, ambulating more steadily. He is correcting his right lynne drift as he walks. Review of Systems: No fevers, chills, nausea, vomiting, myalgias, arthralgias. No other positives on the systems review including no depression. Physical Examination: Vital Signs: Blood pressure 139/72, pulse 77, respiratory rate of 16, temperature 97.2, oxygen satur ation 96% on room air. General: Mr. Norman again is ambulating around the halls and is also in a wheelchair earlier. HEENT: He is normocephalic, atraumatic. Sclerae anicteric. Oropharynx pink and moist. Neck: Supple. Chest: Clear. Heart: Regular. Neuro: He has some ataxia with walking and tendency to fall to the right side, which is improving as he is using his rolling walker. Laboratory Studies: White blood cell count 7.0, hemoglobin 12.2, platelets 242. Sodium 137, potassi um 3.9, chloride 104, carbon dioxide 28, BUN also 28, creatinine 0.81. Prealbumin 20.3, albumin 3.0. Magnesium 2.4. Calcium 8.8. X-ray/imaging: No new x-rays or imaging. Medications: Medications have been reviewed and remained unchanged. Current Functional Status: Today, [id number] transfers done with supervision. He is able ambulate 90 feet 5 times with contact guard assistance with a mirror in front of him to visualize cues. He a scended and descended 15 steps with minimum assistance. He mobilized wheelchair 450 feet with verbal cues and supervision. Regarding speech, he recalled 1/3 unrelated pictures after 5 minutes with 3 r ecall and 3/3 with cued recall. Progress Towards Rehabilitation Goals: Mr. Norman is making good progress overall with his goals of becoming independent with upper and lower body dressing, transferring, toileting, ambulating 500 fee t with modified independence, going up and down 15 steps with modified independence and performing co gnitive functioning with modified independence. He is still somewhat limited by the stroke making hi m to have a tendency to drift towards his right as he ambulates and still has some memory or cognitiv e issues, which he is being worked on by speech pathology. Assessment: Mr. Norman is a 77-year-old patient with a right middle stroke, who has difficulty with ambulation tending to fall to the right side as he ambulates. He has epilepsy, hypertension, consti pation, insomnia. Plan: 1.Physical, occupational, and speech therapy for 3.5 hours, 5/7 days. 2.Spironolactone 25 mg daily along with clonidine 0.1 mg as needed every 2 hours. Continue Keppra 5 00 mg twice daily for seizure control. Continue Plavix 75 mg and aspirin 81 mg daily for stroke risk reduction. Continue Aricept for dementia. Continue Lovenox for DVT prophylaxis. Note, Apresoline was also given twice daily 25 mg to control his blood pressure. He has Senokot at night for constipa tion. Comorbidities That Continue To Impact The Rehabilitation Process: At this point, his major comorbid is the stroke with drifting to the right side. Also, there are some cognitive issues from baseline c ognitive impairment. He is on a starting dose of Aricept. May consider going to 10 mg a day at bedt josep. DARYL/BEVERLY Voice ID: [id number] Report ID: [id number]
--- NOTE | 2023-01-19 22:04 | P.PN ---
Subjective Date of Service: 01/19/23 Chief Complaint: INCOORDINATION. Subjective: Improving HE IS HERE FOR PT HASNO NEW ISSUES. HE IS GETTING STRONGER. LOVES IT HERE. DOING PT DAILY. Physical Examination - Vital Signs Temperature: 97.8 F Blood Pressure: 145/65 Pulse: 74 Respirations: 18 Pulse Ox (%): 95 - Physical Exam General: Alert, In no apparent distress HEENT: Atraumatic, PERRLA, EOMI Neck: Supple, JVD not distended Respiratory: Clear to auscultation bilaterally, Normal air movement Cardiovascular: Regular rate/rhythm, Normal S1 S2 Gastrointestinal: Normal bowel sounds, No tenderness Musculoskeletal: No tenderness Integumentary: No rashes Neurological: Abnormal strength (R SIDE INCOORDINATION.) Lymphatics: No axilla or inguinal lymphadenopathy - Studies Laboratory Data (last 24 hrs) 01/19/23 01/19/23 03:15 03:15 WBC 7.00 Hgb 12.2 L Hct 35.2 L Plt Count 242 Sodium 137 Potassium 3.9 BUN 28 H Creatinine 0.81 Glucose 107 H Magnesium 2.4 Medications List Reviewed: Yes Assessment And Plan - Current Problems (Diagnosis) (1) 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 (2) Seizure, absence Current Visit: No Status: Chronic Plan: CONTINUE KEPPRA. (3) HTN (hypertension) Current Visit: Yes Status: Chronic Plan: AMLODIPINE BID IS WORKING SOME ADD SPIRONOLACTONE.
[2023-01-20] MEDS: SPIRONOLACTONE 25 MG TABLET PO SCH (07:31)
[2023-01-20] MEDS: AMLODIPINE 5 MG TAB PO SCH ×2 (07:32→19:36)
[2023-01-20] MEDS: ASPIRIN EC 81 MG TAB PO SCH (07:33)
[2023-01-20] MEDS: levETIRAcetam 500 MG TAB PO SCH ×2 (07:33→19:28)
[2023-01-20] MEDS: CLOPIDOGREL 75 MG TABLET PO SCH (07:33)
[2023-01-20] MEDS: HYDRALAZINE HCL 25 MG TABLET PO SCH ×3 (07:33→19:36)
[2023-01-20] MEDS: ENSURE ENLIVE 237 ML CAN PO SCH ×2 (07:34→19:29)
--- NOTE | 2023-01-20 13:15 | P.RH.PN ---
Estimated Length of Stay: 13 Expected Discharge Date: 01/26/23 Discharge Disposition Plan: Home Family Support: Yes Detention Goal: Mobility, Transfers, Self Care Vital Signs: Last Vital Signs Temp 97.2 F 01/20/23 08:00 Pulse 75 01/20/23 08:00 Resp 16 01/20/23 08:00 BP 126/61 01/20/23 08:00 Pulse Ox 94 01/20/23 08:00 Laboratory: Laboratory Last Values WBC 7.00 thou/uL (4.3-10.9) 01/19/23 03:15 RBC 3.75 M/uL (4.33-5.43) L 01/19/23 03:15 Hgb 12.2 g/dL (13.6-17.9) L 01/19/23 03:15 Hct 35.2 % (39.6-49.0) L 01/19/23 03:15 MCV 93.8 fL (80-100) 01/19/23 03:15 MCH 32.4 pg (27.0-35.0) 01/19/23 03:15 MCHC 34.6 g/dL (32.0-36.0) 01/19/23 03:15 RDW 13.6 % (12.1-15.2) 01/19/23 03:15 Plt Count 242 thou/uL (152-406) 01/19/23 03:15 MPV 8.1 fL (7.6-11.3) 01/19/23 03:15 Neutrophils % 51.6 % (41.7-73.7) 01/19/23 03:15 Lymphocytes % 34.2 % (15.3-44.8) 01/19/23 03:15 Monocytes % 12.9 % (3.3-12.3) H 01/19/23 03:15 Eosinophils % 0.8 % (0-4.4) 01/19/23 03:15 Basophils % 0.5 % (0-1.3) 01/19/23 03:15 Absolute Neutrophils 3.6 K/uL (1.8-8.0) 01/19/23 03:15 Absolute Lymphocytes 2.4 K/uL (0.7-4.9) 01/19/23 03:15 Absolute Monocytes 0.9 K/uL (0.1-1.3) 01/19/23 03:15 Absolute Eosinophils 0.1 K/uL (0-0.5) 01/19/23 03:15 Absolute Basophils 0.0 K/uL (0-0.5) 01/19/23 03:15 Sodium 137 mEq/L (136-145) 01/19/23 03:15 Potassium 3.9 mEq/L (3.5-5.1) 01/19/23 03:15 Chloride 104 mEq/L (98-107) 01/19/23 03:15 Carbon Dioxide 28 mEq/L (21-32) 01/19/23 03:15 Anion Gap 8.9 mEq/L (5.0-15.0) 01/19/23 03:15 BUN 28 mg/dL (7-18) H 01/19/23 03:15 Creatinine 0.81 mg/dL (0.70-1.30) 01/19/23 03:15 Est GFR (CKD-EPI) 90 ml/min (=/>90) 01/19/23 03:15 Glucose 107 mg/dL (74-106) H 01/19/23 03:15 Calcium 8.8 mg/dL (8.5-10.1) 01/19/23 03:15 Magnesium 2.4 mg/dL (1.6-2.4) 01/19/23 03:15 Albumin 3.0 g/dL (3.4-5.0) L 01/19/23 03:15 Prealbumin 20.3 mg/dL (20-40) 01/19/23 03:15 Urine Color Light-yellow (Yellow) 01/15/23 15:35 Urine Clarity Turbid (Clear) H 01/15/23 15:35 Urine pH 6.0 (5.0-7.0) 01/15/23 15:35 Ur Specific Lanse 1.018 (1.005-1.030) 01/15/23 15:35 Glucose (UA)(Auto) Trace (Negative) H 01/15/23 15:35 Urine Ketones Negative (Negative) 01/15/23 15:35 Urine Blood Negative (Negative) 01/15/23 15:35 Urine Nitrite Negative (Negative) 01/15/23 15:35 Urine Bilirubin Negative (Negative) 01/15/23 15:35 Urine Urobilinogen Normal (Normal) 01/15/23 15:35 Ur Leukocyte Esterase Negative Je/uL (Negative) 01/15/23 15:35 Urine RBC <5 /HPF (None Seen) 01/15/23 15:35 Urine WBC <5 /HPF (<5) 01/15/23 15:35 Ur Squamous Epith Cells None seen /HPF (None Seen) 01/15/23 15:35 Amorphous Crystals Trace /HPF (None Seen) 01/15/23 15:35 Urine Bacteria <20 /HPF (<20) 01/15/23 15:35 Urine Mucus Slight /HPF (None Seen) 01/15/23 15:35 Urine Culture Reflexed Not needed 01/15/23 15:35 Urine Total Protein Negative (Negative) 01/15/23 15:35 Weight: 144 lb 15.968 oz Wound Present: No Closed Surgical Incision Present: No Negative Pressure Wound Therapy Present: No Physician Update: Labs reviewed and shows mild dehydration. He is making good progress with therapy. His tendency to the right when ambulating is better. BIMS 13, SLUMS 10. Poor short term memory. Easily confused but has insite to deficits. Walking 250' with RW, up and down 15 steps. Difficulting sequencing steps. Outpatient therapy. 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 Please see the Rehabilitation Signature page for all necessary signatures.
[2023-01-20] MEDS: ENOXAPARIN 40 MG/0.4 ML SQ SCH (17:06)
[2023-01-20] MEDS ORDERED: MAGNESIUM HYDROXIDE 8% 30 ML PO PRN (19:05)
[2023-01-20] MEDS: DONEPEZIL HCL 5 MG TAB PO SCH (19:30)
--- NOTE | 2023-01-20 21:32 | P.PN ---
Subjective Date of Service: 01/20/23 Chief Complaint: INCOORDINATION. Subjective: Improving HE IS HERE FOR PT HASNO NEW ISSUES. HE IS GETTING STRONGER. LOVES IT HERE. DOING PT DAILY. HE IS DOING PT DAILY HE IS COMFORTABLE. Review of Systems 10-point ROS is otherwise unremarkable Physical Examination - Vital Signs Temperature: 97.2 F Blood Pressure: 188/81 Pulse: 76 Respirations: 16 Pulse Ox (%): 94 - Physical Exam General: Alert, In no apparent distress HEENT: Atraumatic, PERRLA, EOMI Neck: Supple, JVD not distended Respiratory: Clear to auscultation bilaterally, Normal air movement Cardiovascular: Regular rate/rhythm, Normal S1 S2 Gastrointestinal: Normal bowel sounds, No tenderness Musculoskeletal: No tenderness Integumentary: No rashes Neurological: Normal speech, Normal tone, Normal affect, Abnormal gait (ATAXIA, TENDENCY TO FALL TO R SIDE.) Lymphatics: No axilla or inguinal lymphadenopathy - Studies Medications List Reviewed: Yes Assessment And Plan - Current Problems (Diagnosis) (1) 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 (2) Seizure, absence Current Visit: No Status: Chronic Plan: CONTINUE KEPPRA. (3) HTN (hypertension) Current Visit: Yes Status: Chronic Plan: AMLODIPINE BID IS WORKING SOME ADD SPIRONOLACTONE.
[2023-01-21] MEDS: SPIRONOLACTONE 25 MG TABLET PO SCH (07:12)
[2023-01-21] MEDS: CLOPIDOGREL 75 MG TABLET PO SCH (07:14)
[2023-01-21] MEDS: ASPIRIN EC 81 MG TAB PO SCH (07:14)
[2023-01-21] MEDS: AMLODIPINE 5 MG TAB PO SCH ×2 (07:14→19:48)
[2023-01-21] MEDS: levETIRAcetam 500 MG TAB PO SCH ×2 (07:14→19:48)
[2023-01-21] MEDS: ENSURE ENLIVE 237 ML CAN PO SCH ×2 (08:34→19:48)
[2023-01-21] MEDS: HYDRALAZINE HCL 25 MG TABLET PO SCH ×3 (08:55→19:48)
[2023-01-21] MEDS: ENOXAPARIN 40 MG/0.4 ML SQ SCH (16:15)
--- NOTE | 2023-01-21 17:11 | P.PN ---
Subjective Date of Service: 01/21/23 Chief Complaint: INCOORDINATION. Subjective: Improving STABLE NO CHANGES TODAY. Review of Systems 10-point ROS is otherwise unremarkable Physical Examination - Vital Signs Temperature: 98.6 F Blood Pressure: 150/69 Pulse: 85 Respirations: 18 Pulse Ox (%): 95 - Physical Exam General: Oriented x3, Acute distress, Mild distress HEENT: Atraumatic, PERRLA, EOMI Neck: Supple, JVD not distended Respiratory: Clear to auscultation bilaterally, Normal air movement Cardiovascular: Regular rate/rhythm, Normal S1 S2 Gastrointestinal: Normal bowel sounds, No tenderness Musculoskeletal: No tenderness Integumentary: No rashes Neurological: Normal speech, Normal tone, Normal affect Lymphatics: No axilla or inguinal lymphadenopathy - Studies Medications List Reviewed: Yes Assessment And Plan - Current Problems (Diagnosis) (1) 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 CONT PT STABLE. (2) Seizure, absence Current Visit: No Status: Chronic Plan: CONTINUE KEPPRA. (3) HTN (hypertension) Current Visit: Yes Status: Chronic Plan: AMLODIPINE BID IS WORKING SOME ADD SPIRONOLACTONE.
--- NOTE | 2023-01-21 18:11 | RAD REPORT ---
EXAM DESCRIPTION: RAD - Hip Right 2 View - 01/21/2023 6:01 pm CLINICAL HISTORY: pain Pain and swelling COMPARISON: <Comparisons> FINDINGS: Moderate degenerate change affects the right hip. No fracture, dislocation or AVN.
[2023-01-21] MEDS: MELATONIN 5 MG TABLET PO PRN (19:48)
[2023-01-21] MEDS: DONEPEZIL HCL 5 MG TAB PO SCH (19:48)
[2023-01-22] MEDS: SPIRONOLACTONE 25 MG TABLET PO SCH (07:19)
[2023-01-22] MEDS: ASPIRIN EC 81 MG TAB PO SCH (07:24)
[2023-01-22] MEDS: AMLODIPINE 5 MG TAB PO SCH ×2 (07:25→19:42)
[2023-01-22] MEDS: CLOPIDOGREL 75 MG TABLET PO SCH (07:25)
[2023-01-22] MEDS: levETIRAcetam 500 MG TAB PO SCH ×2 (07:25→19:43)
[2023-01-22] MEDS: ENSURE ENLIVE 237 ML CAN PO SCH ×2 (09:48→19:43)
[2023-01-22] MEDS: HYDRALAZINE HCL 25 MG TABLET PO SCH ×3 (09:48→19:43)
--- NOTE | 2023-01-22 17:51 | P.PN ---
Subjective Date of Service: 01/22/23 Chief Complaint: INCOORDINATION. Subjective: Improving STABLE NO CHANGES TODAY. STRONGER, DOING GOOD WITH PT. Review of Systems 10-point ROS is otherwise unremarkable General: Weakness Physical Examination - Vital Signs Temperature: 98.2 F Blood Pressure: 137/66 Pulse: 82 Respirations: 18 Pulse Ox (%): 96 - Physical Exam General: Oriented x3, Mild distress HEENT: Atraumatic, PERRLA, EOMI Neck: Supple, JVD not distended Respiratory: Clear to auscultation bilaterally, Normal air movement Cardiovascular: Regular rate/rhythm, Normal S1 S2 Gastrointestinal: Normal bowel sounds, No tenderness Musculoskeletal: No tenderness Integumentary: No rashes Neurological: Normal speech, Normal tone, Normal affect Lymphatics: No axilla or inguinal lymphadenopathy - Studies Medications List Reviewed: Yes Assessment And Plan - Current Problems (Diagnosis) (1) 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 CONT PT STABLE. DOING GOOD. NO CHANGES. (2) Seizure, absence Current Visit: No Status: Chronic Plan: CONTINUE KEPPRA. (3) HTN (hypertension) Current Visit: Yes Status: Chronic Plan: AMLODIPINE BID IS WORKING SOME ADD SPIRONOLACTONE.
[2023-01-22] MEDS: DONEPEZIL HCL 5 MG TAB PO SCH (19:42)
[2023-01-22] MEDS: NYSTATIN PWDR 100000 UNIT/GM TOP SCH (19:42)
[2023-01-22] MEDS: MELATONIN 5 MG TABLET PO PRN (19:43)
[2023-01-22] MEDS: APIXABAN 2.5 MG TABLET PO SCH (19:43)
[2023-01-23 04:29] LABS: Absolute Lymphocytes (CBC) 2.5 K/uL (0.7-4.9); Hematocrit 34.8 % (39.6-49.0); Lymphocytes % 25.3 % (15.3-44.8); MCV 93.9 fL (80-100); MPV 7.8 fL (7.6-11.3); Platelets 285 thou/uL (152-406)
[2023-01-23 05:03] LABS: Potassium 3.7 mEq/L (3.5-5.1)
[2023-01-23] MEDS: NYSTATIN PWDR 100000 UNIT/GM TOP SCH ×2 (07:27→19:55)
[2023-01-23] MEDS: AMLODIPINE 5 MG TAB PO SCH ×2 (07:27→19:56)
[2023-01-23] MEDS: ASPIRIN EC 81 MG TAB PO SCH (07:27)
[2023-01-23] MEDS: APIXABAN 2.5 MG TABLET PO SCH ×2 (07:27→19:56)
[2023-01-23] MEDS: SPIRONOLACTONE 25 MG TABLET PO SCH (07:28)
[2023-01-23] MEDS: HYDRALAZINE HCL 25 MG TABLET PO SCH ×4 (07:28→19:56)
[2023-01-23] MEDS: levETIRAcetam 500 MG TAB PO SCH ×2 (07:28→19:56)
[2023-01-23] MEDS: ENSURE ENLIVE 237 ML CAN PO SCH ×2 (07:29→19:57)
--- NOTE | 2023-01-23 18:06 | P.PN ---
Subjective Date of Service: 01/23/23 Chief Complaint: INCOORDINATION. Subjective: Improving STABLE NO CHANGES TODAY. STRONGER, DOING GOOD WITH PT. WORKING WITH PT DAILY. FAMILY AND PATIENT ARE HAPPY. Review of Systems 10-point ROS is otherwise unremarkable Physical Examination - Vital Signs Temperature: 97.2 F Blood Pressure: 117/69 Pulse: 81 Respirations: 18 Pulse Ox (%): 96 - Physical Exam General: Alert, In no apparent distress HEENT: Atraumatic, PERRLA, EOMI Neck: Supple, JVD not distended Respiratory: Clear to auscultation bilaterally, Normal air movement Cardiovascular: Regular rate/rhythm, Normal S1 S2 Gastrointestinal: Normal bowel sounds, No tenderness Musculoskeletal: No tenderness Integumentary: No rashes Neurological: Normal speech, Normal tone, Normal affect Lymphatics: No axilla or inguinal lymphadenopathy - Studies Laboratory Data (last 24 hrs) 01/23/23 01/23/23 03:55 03:55 WBC 9.90 Hgb 12.0 L Hct 34.8 L Plt Count 285 Sodium 136 Potassium 3.7 BUN 20 H Creatinine 0.78 Glucose 102 Medications List Reviewed: Yes Assessment And Plan - Current Problems (Diagnosis) (1) 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 CONT PT STABLE. DOING GOOD. NO CHANGES. REVIEWED PT NOTES. (2) Seizure, absence Current Visit: No Status: Chronic Plan: CONTINUE KEPPRA. (3) HTN (hypertension) Current Visit: Yes Status: Chronic Plan: AMLODIPINE BID IS WORKING SOME ADD SPIRONOLACTONE.
[2023-01-23] MEDS: MELATONIN 5 MG TABLET PO PRN (19:56)
[2023-01-23] MEDS: DONEPEZIL HCL 5 MG TAB PO SCH (19:56)
--- NOTE | 2023-01-23 21:28 | PN ---
Date of Progress Note: 01/21/2023 Time Of Service: 1:30 p.m. Subjective: Mr. Norman is doing very well. is at bedside. He is very happy with his progress so far. Has no new complaints. Review of Systems: No fevers, chills, nausea, vomiting. No significant myalgias or arthralgias. His right hand dexteri ty is improving. He is now ambulating straight instead of falling to the right with a walker as he d id previously. Physical Examination: Vital Signs: Blood pressure 138/69, pulse 81, respiratory rate 16, temperature 97.2, oxygen saturati on 96%. General: Mr. Norman is resting in bed. HEENT: He is normocephalic, atraumatic. Sclerae anicteric. Oropharynx is moist and pink. Neck: Supple. Chest: Clear. Heart: Regular. Extremities: Upper extremity on the right side, he has some dexterity issues, but is improving signi ficantly. 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 Laboratory Studies: White blood cell count 9.9, hemoglobin 12, platelets 285. Sodium 136, potassium 3.7, chloride 105, carbon dioxide 28, BUN 20, creatinine 0.78, calcium 8.8, glucose 102. X-ray/imaging: No new x-rays or imaging since the . There was a hip x-ray on the showing m oderate degenerative changes affecting the right hip. No fracture, dislocation or avascular necrosis seen. Medications: Medications have been reviewed and remained unchanged. Current Functional Status: Today, he ambulated with a rolling walker 750 feet, another 500 feet with contact guard assistance. Also, used a Rollator to cover 350 feet and 125 feet with contact guard a ssistance. Supine sit transfers done independently. With his occupational therapy, required supervi kristen for bed mobilization, toilet transfers, and completed 4 sit to stands with a rolling walker with his speech therapy recalled 3/4 unrelated pictures using the phonemic cuing strategies after a 5-min pawan delay. Progress Towards Rehabilitation Goals: Mr. Norman is making very good progress towards his goals o f being able to ambulate 500 feet with modified independence using a rolling walker without falling t o the right and performing all of his activities of daily living with modified independence. Also ma edgar great progress with his cognitive functioning and his speech as well. Assessment: Mr. Norman is a 77-year-old patient in the rehabilitation unit with a stroke affecting his right upper extremity dexterity and coordination. He is making excellent progress with his physi addie, occupational, and speech therapy. He has comorbid epilepsy, hypertension, constipation, insomni a and is doing very well with those being managed very well by Dr. Tapia, his primary care physician. Plan: 1.Continue with physical, occupational, and speech therapy for 3.5 hours, 5/7 days. 2.His comorbid condition medications are continued including Keppra for seizures, Plavix and aspirin for stroke risk reduction, spironolactone and clonidine for his hypertension and fluid management. Now, he is switched to Eliquis 2.5 mg twice daily instead of Lovenox for DVT prophylaxis. He has Apr esoline as well for his blood pressure control and Senokot for constipation. Comorbidities That Continue To Impact The Rehabilitation: Currently, his comorbidities are well stewart ged including cognitive issues and he is not negatively impacted by comorbids. DARYL/MODL Voice ID: [id number] Report ID: [id number]
[2023-01-24] MEDS: NYSTATIN PWDR 100000 UNIT/GM TOP SCH ×2 (07:14→19:20)
[2023-01-24] MEDS: ENSURE ENLIVE 237 ML CAN PO SCH ×2 (07:15→19:21)
[2023-01-24] MEDS: levETIRAcetam 500 MG TAB PO SCH ×2 (07:15→19:21)
[2023-01-24] MEDS: ASPIRIN EC 81 MG TAB PO SCH (07:15)
[2023-01-24] MEDS: APIXABAN 2.5 MG TABLET PO SCH ×2 (07:15→19:21)
[2023-01-24] MEDS: HYDRALAZINE HCL 25 MG TABLET PO SCH ×3 (08:28→19:21)
[2023-01-24] MEDS: SPIRONOLACTONE 25 MG TABLET PO SCH (08:28)
[2023-01-24] MEDS: AMLODIPINE 5 MG TAB PO SCH ×2 (09:26→19:21)
--- NOTE | 2023-01-24 13:01 | P.PN ---
Subjective Date of Service: 01/24/23 Chief Complaint: INCOORDINATION. Subjective: Improving STABLE NO CHANGES TODAY. STRONGER, DOING GOOD WITH PT. WORKING WITH PT DAILY. FAMILY AND PATIENT ARE HAPPY. STABLE. FEELS WELL. Physical Examination - Vital Signs Temperature: 97.3 F Blood Pressure: 132/59 Pulse: 90 Respirations: 18 Pulse Ox (%): 94 - Physical Exam General: Oriented x3, Mild distress HEENT: Atraumatic, PERRLA, EOMI Neck: Supple, JVD not distended Respiratory: Clear to auscultation bilaterally, Normal air movement Cardiovascular: Regular rate/rhythm, Normal S1 S2 Gastrointestinal: Normal bowel sounds, No tenderness Musculoskeletal: No tenderness Integumentary: No rashes Neurological: Normal speech, Normal tone, Normal affect Lymphatics: No axilla or inguinal lymphadenopathy - Studies Medications List Reviewed: Yes Assessment And Plan - Current Problems (Diagnosis) (1) 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 CONT PT STABLE. DOING GOOD. NO CHANGES. REVIEWED PT NOTES. (2) Seizure, absence Current Visit: No Status: Chronic Plan: CONTINUE KEPPRA. (3) HTN (hypertension) Current Visit: Yes Status: Chronic Plan: AMLODIPINE BID IS WORKING SOME ADD SPIRONOLACTONE.
[2023-01-24] MEDS: DONEPEZIL HCL 5 MG TAB PO SCH (19:21)
[2023-01-24] MEDS: MELATONIN 5 MG TABLET PO PRN (19:21)
--- NOTE | 2023-01-24 21:35 | PN ---
Date of Progress Note: 01/24/2023 Time Of Service: 1 p.m. Subjective: Mr. Norman is resting in bed. at the bedside. He is happy about his progress and is ready for discharge home tomorrow. He has no new complaints. Review of Systems: No fevers, chills, nausea, or vomiting. No myalgias or arthralgias. He says the right upper extremi ty is much better. His actually showed a video of him walking down the hallway, where he is abl e to ambulate straight without falling to the right. Physical Examination: Vital Signs: Blood pressure 147/68, pulse of 72, respiratory rate of 16, temperature 97.3, oxygen sa turation 94%. General: Mr. Norman is resting comfortably in bed. HEENT: He is normocephalic, atraumatic. His sclerae are anicteric. Oropharynx is pink and moist. Neck: Supple. Chest: Clear. Heart: Regular. Extremities: Right upper extremity, he has improved coordination, dexterity, stance, stride, and wit h a walker, walks very straight without falling to either side. Laboratory Studies: No new laboratory studies since yesterday. X-ray/imaging: No new x-rays or imaging. Medications: His medications have been reviewed and remained unchanged. Current Functional Status: We had a speech therapy today. He increased a BIMS test from 13 to 14 an d SLUMS from a 10 to 15. With his physical therapy, he was able to ambulate 750 feet upon onset and 500 feet with contact guard assistance. He then ambulated with a Rollator, that was with a rolling w alker. He ambulated with a Rollator 350 feet and 175 feet with contact guard assistance. With occup ational therapy, bed mobility and toilet transfers required supervision. Progress Towards Rehabilitation Goals: Mr. Norman is making excellent progress towards his goals of becoming independent with upper and lower body dressing, transferring, toileting, showering, and amb ulating over an hour 750 feet with modified independence, going up and down 10 steps with modified in dependence, and performing cognitive functioning with modified independence. Assessment: Mr. Norman is a 77-year-old patient in the rehabilitation unit with strokes in the medu lla affecting his right upper extremity in terms of coordination, affecting his gait in terms of tend ing to go to the right and ambulating, that is all improving very well. His comorbid condition of hy pertension, constipation, insomnia, and epilepsy are well managed. Plan: 1.Continue with physical, occupational, and speech therapy for 3.5 hours, 5 of 7 days. 2.His comorbid medications are continued and have been listed. Medications will include now a switc h to Eliquis 2.5 mg twice daily for DVT prophylaxis as well as Lovenox. He also is going to be ready for discharge home in the morning and will follow up with Dr. Tapia, primary care physician, and Dr. Worthy, neurologist. Comorbidities That Continue To Impact His Rehabilitation: His comorbidities are stably managed and d o not negatively impact his rehabilitation. DARYL/BEVERLY Voice ID: [id number] Report ID: [id number]
[2023-01-25 07:05] VITALS: TEMP 97.6
[2023-01-25] MEDS: NYSTATIN PWDR 100000 UNIT/GM TOP SCH (07:44)
[2023-01-25] MEDS: SPIRONOLACTONE 25 MG TABLET PO SCH (07:45)
[2023-01-25] MEDS: ASPIRIN EC 81 MG TAB PO SCH (07:45)
[2023-01-25] MEDS: levETIRAcetam 500 MG TAB PO SCH (07:45)
[2023-01-25] MEDS: APIXABAN 2.5 MG TABLET PO SCH (07:45)
[2023-01-25] MEDS: HYDRALAZINE HCL 25 MG TABLET PO SCH (07:45)
[2023-01-25] MEDS: ENSURE ENLIVE 237 ML CAN PO SCH (07:46)
[2023-01-25] MEDS: AMLODIPINE 5 MG TAB PO SCH (08:58)
[2023-01-25 08:59] VITALS: BP 151/71
--- NOTE | 2023-01-25 18:08 | P.PN ---
Subjective Date of Service: 01/25/23 Chief Complaint: INCOORDINATION. Subjective: Improving STABLE NO CHANGES TODAY. STRONGER, DOING GOOD WITH PT. WORKING WITH PT DAILY. FAMILY AND PATIENT ARE HAPPY. STABLE. FEELS WELL. HE IS STABLE GOING HOME TODAY I WROTE HANDICAP STICKER FOR THEM. THEY PICKED UP FROM OFFICE. 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 CONT PT STABLE. DOING GOOD. NO CHANGES. REVIEWED PT NOTES. (2) Seizure, absence Status: Chronic Plan: CONTINUE KEPPRA. (3) HTN (hypertension) Status: Chronic Plan: AMLODIPINE BID IS WORKING SOME ADD SPIRONOLACTONE.
== END 2023-01-25 09:15 | disposition home or self-care (01) | DRG 57 ==
LOC: 5TH 13:05
PROVIDERS: ADMIT Psychiatry & Neurology Neurology with Special Qualifications in Child Neurology; ATTEND Psychiatry & Neurology Neurology with Special Qualifications in Child Neurology
DX: I69.398 Other sequelae of cerebral infarction (principal); E87.1 Hypo-osmolality and hyponatremia; E46 Unspecified protein-calorie malnutrition; R27.8 Other lack of coordination; K59.00 Constipation, unspecified; F03.90 Unspecified dementia, unspecified severity, without behavioral disturbance, psychotic disturbance, mood disturbance, and anxiety; G40.909 Epilepsy, unspecified, not intractable, without status epilepticus; I10 Essential (primary) hypertension; E78.5 Hyperlipidemia, unspecified; R00.1 Bradycardia, unspecified; I45.10 Unspecified right bundle-branch block; G47.00 Insomnia, unspecified
CPT/HCPCS: 36415; 80048; 81001; 82040; 83735; 84134; 85025; 87086; 87088; 92523; 97110; 97112; 97116; 97129; 97130; 97163; 97165; 97530; 97542; J1650